=== PATIENT | female | born 1965 | race Caucasian/White ===

== ENCOUNTER 2017-01-20 07:06 | Inpatient (IN) ==
--- NOTE | 2017-01-20 08:34 | Cardiothoracic History & Phys ---
History of Present Illness Chief complaint: Substernal chest discomfort History of present illness: Ms. Gray is a 51 year old female who was admitted to [facility] 3 days ago with recent onset of tightness across her chest which awoke her from sleep. She presented to the emergency room where she was relieved with nitroglycerin and was transferred to [facility] for further evaluation. She was seen by Dr. Soto who recommended cardiac catheterization and this demonstrated critical three-vessel coronary artery disease. Patient is to be transferred to our hospital for coronary bypass surgery. Past medical history significant for history of anxiety and depression as well as diabetes mellitus and gastroesophageal reflux disease. Family history and social history shows that there is no history of premature coronary disease and the patient is a lifetime non-smoker and does not drink alcohol. She is allergic to Cipro. Review of systems is noncontributory. Physical examination: Patient is a well-developed well-nourished white female in no acute distress. Examination of head eyes ears nose and throat show the pupils are equal react to light and extraocular motions are intact and the oropharynx is benign. Examination of the neck shows that there are no masses and there are no bruits. There is no thyromegaly. Examination of chest is clear to percussion and auscultation. Examination heart shows regular sinus rhythm without murmurs. Examination of the abdomen shows that it is soft nontender and there are no masses or organomegaly appreciated. Examination extremities shows no cyanosis or edema. Neurological examination is grossly intact. Assessment: Triple-vessel coronary artery disease. Plan: Coronary bypass grafting , 01/22/2017.
[2017-01-20] MEDS ORDERED: GLUCAGON 1 MG VIAL IM PRN ×2 (08:39)
[2017-01-20] MEDS ORDERED: DEXTROSE 50% 25 GM/50 ML VIAL IV PRN (08:39)
[2017-01-20] MEDS ORDERED: DEXTROSE 50% 25 GM/50 ML SYRINGE IV PRN (08:39)
[2017-01-20] MEDS ORDERED: CEFUROXIME INJ 1,500 MG in SODIUM CHLORIDE 0.9% 100 ML IV ONE (08:39)
[2017-01-20] MEDS ORDERED: CLORAZEPATE 7.5 MG TABLET PO PRN (08:46)
[2017-01-20] MEDS ORDERED: oxyCODONE/ACETAMINOPHEN 5-325 MG TABLET PO PRN (08:50)
[2017-01-20] MEDS ORDERED: PANTOPRAZOLE 40 MG TABLET PO SCH (09:00)
[2017-01-20] MEDS: ASPIRIN CHEW 81 MG TABLET PO SCH (12:50)
[2017-01-20] MEDS: METOPROLOL TARTRATE 25 MG TABLET PO SCH ×2 (12:51→20:18)
[2017-01-20] MEDS: ENOXAPARIN 40 MG/0.4 ML SYRINGE SUBCUT SCH (14:21)
[2017-01-20] MEDS: CHLORHEXIDINE 0.12% ORAL RINSE 60 ML BOTTLE SWISH/SPIT SCH ×2 (14:21→20:19)
--- NOTE | 2017-01-20 15:44 | Sleep Medicine Consult ---
Assessment and Plan (1) Obstructive sleep apnea Status: Acute Assessment and plan: This patient should undergo reevaluation of her sleep apnea, particularly with her history of diabetes and now multivessel coronary artery disease. We will schedule home sleep testing tonight while hospitalized to see if she still has significant sleep apnea. She has dropped her weight about 23 pounds since her diagnosis and certainly may not have significant sleep apnea. She does sound to be sleeping well according to her without CPAP. Current Visit: Yes (2) Type 2 diabetes mellitus Status: Acute Assessment and plan: The prevalence rate for obstructive sleep apnea in patients with type 2 diabetes can be as high as 86%. Those patients with moderate to severe obstructive sleep apnea are at a greater risk for diabetic nephropathy and neuropathy. Compliance with CPAP therapy for these patients can lead to improvement in glycemic control and improvement in insulin sensitivity. Current Visit: Yes (3) Obesity (BMI 30-39.9) Status: Acute Assessment and plan: Patient encouraged to continue to work on weight loss thru appropriate dieting and exercise. The combination of weight loss and CPAP therapy for obstructive sleep apnea is better than either therapy alone for obstructive sleep apnea. Current Visit: Yes History of Present Illness Chief complaint: Obstructive sleep apnea History of present illness: Ms. Gray is a 51 year old female known to me from previous sleep evaluation in 2013. She was found to have moderate obstructive sleep apnea with an AHI of 15.4. She underwent CPAP titration and was placed on CPAP of 9 cm. She weighed approximately 222 pounds at the time of her evaluation. She states that she lost a significant amount of weight and quit using CPAP because she no longer needed it. Her snoring got better and she has been sleeping without CPAP now for over a year. Her is with her and states that her snoring is much better. He never hears her stop breathing during her sleep. She recently was diagnosed with coronary artery disease after presenting with chest pain. She has been admitted for bypass surgery and this is scheduled for 01/22. She currently denies any significant sleepiness. Home Medications Medication Instructions Recorded Confirmed Type Cholecalciferol [Vitamin D3] 1,000 unit PO BEDTIME 01/20/17 01/20/17 History Citalopram Hydrobromide [Celexa] 20 mg PO BEDTIME 01/20/17 01/20/17 History Clorazepate Dipotassium 7.5 mg PO BEDTIME 01/20/17 01/20/17 History [Clorazepate Dipotassium] Dapagliflozin/Metformin HCl 1 tablet PO BEDTIME 01/20/17 01/20/17 History [Xigduo Xr 5 mg-1,000 mg Tablet] glipiZIDE [Glipizide] 10 mg PO BEDTIME 01/20/17 01/20/17 History Allergies Allergy/AdvReac Type Severity Reaction Status Date / Time ciprofloxacin [From Cipro] AdvReac Severe ITCHING Verified 01/20/17 10:40 Seaweed AdvReac Severe RASH Verified 01/20/17 10:41 Review of systems: Other than for her weight loss, she denies any other significant sleep related symptoms. Exam (Pulmonay) H&P - Constitutional Vitals: Period Temp Pulse Resp BP Sys/Up Pulse Ox Last 24 Hr 98.0 F-98.2 F 85-86 18-18 100-104/63-71 94-97 Exam: She is alert and responsive in no acute distress. Pupils equal round reactive to light and accommodation. Extraocular movements intact. Oropharynx with a class III Mallampati exam. Neck is supple without adenopathy or thyromegaly. No supraclavicular adenopathy is noted. Chest with symmetrical breath sounds without focal wheeze, rhonchi, or rales. Cardiac exam reveals a regular rhythm without murmur or gallop. Abdomen soft nontender without palpable hepatosplenomegaly or mass. Extremities are without clubbing cyanosis, or edema. Neurologically, she is grossly intact. She moves all extremities with good strength. Medical,Surgical,& Family Hx - Medical History Cardio: History of: CAD, Hypertension, [place] Psychological: History of: Anxiety Disorders, Depression Endocrine: History of: Diabetes Mellitus (IDDM), Dyslipidemia Respiratory: History of: Bronchitis, Pneumonia Genitourinary: History of: Recurring Urinary Tract Infections Gastrointestinal: History of: GERD Reproductive: History of: Endometriosis - Surgical History Cardiac Surgeries: Sugical HX of: Cardiac Catheterization Abdominal Surgeries: Surgical HX of: Colonoscopy, EGD Reproductive Surgeries: Surgical HX of;: Dilation and Curettage, Hysterectomy - Family History Family History: Reports;: Family Cancer, Family Diabetes - Social History Smoking Status: Never smoker Frequency of Alcohol Use: Rarely Type of Drug Use: None Results - Labs Labs: No recent lab work available as of yet. Quality Measures - VTE Contraindication to Pharmacological VTE Prophylaxis: High Risk of Bleeding
[2017-01-20] MEDS: CITALOPRAM 20 MG TABLET PO SCH (20:18)
[2017-01-20] MEDS: PANTOPRAZOLE 40 MG TABLET PO SCH (20:18)
[2017-01-21 03:34] LABS: ABG Base Excess 4.4 MMOL/L (-2.5-2.5); ABG HCO3 28.3 MMOL/L (20-26); ABG Oxygen Saturation 98.2 % (95-100); ABG PCO2 42.6 MM HG (35-48); ABG PO2 99.6 MM HG (80-95); ABG TCO2 26.1 MMOL/L (23-27); Allen Test Positive; Pt O2 Delivery Device Room Air
[2017-01-21 05:06] LABS: Basophils % 0.7 % (0.0-0.8); Eosinophils # 0.2 10*3/uL (0.0-0.87); Hematocrit 31.1 VOL% (35.7-47.0); Hemoglobin 10.6 GM/DL (12.0-16.0); Immature Granulocytes % 0.5 %; Immature Granulocytes Absolute 0.03 #; Lymphocytes # 1.5 10*3/uL (1.4-4.0); Mean Corpuscular HGB Conc 34.1 GM/DL (32-36); Mean Corpuscular Hemoglobin 30 PG (27-34); Mean Corpuscular Volume 87.6 FL (87-102); Mean Platelet Volume 11.4 FL (9.6-12.0); Monocytes # 0.4 10*3/uL (0.11-0.8); Monocytes % 7.6 % (1.7-12.7); Neutrophils # 3.5 10*3/uL (1.4-7.4); Neutrophils % 61.2 % (38.7-73.9); Platelet Count 127 T/CUMM (130-400); Red Blood Count 3.55 MC/CUMM (3.8-5.5); Red Cell Distribution Width 13.3 % (9.3-17.3); White Blood Count 5.7 T/CUMM (4-12)
[2017-01-21 05:46] LABS: Albumin 2.7 G/DL (3.4-5.0); Bilirubin,Total 0.5 MG/DL (0.2-1.0); Calcium 8.2 MG/DL (8.5-10.1); Osmolality,Calculated 284.4 MOS/KG (273-304); Potassium 3.9 MMOL/L (3.5-5.1); Total Protein 5.9 G/DL (6.4-8.3)
--- NOTE | 2017-01-21 07:41 | EKG Report ---
Stationary ECG Study [facility] Test Date: 01/21/2017 7:42:28 AM Pat Name: YUNG RENE Department: Room: 276 Gender: F Trashman: TYREE : 1965 Requested by: Bandar Carty Order Number: [id number] Reading MD: JOVI FOSTER Intervals [place] Rate: 74 P: 30 [place]: 143 QRS: 55 QRSD: 93 T: 32 QT: 413 QTc: 440 Interpretive Statements SINUS RHYTHM NONSPECIFIC T-WAVE ABNORMALITY Electronically Signed On 01-21-17 13:12:59 CDT by JOVI FOSTER [email or web address]
--- NOTE | 2017-01-21 08:43 | XRay Report ---
XR chest 2V Indication: Coronary artery disease. Chest 2 views: No comparison. Heart size and mediastinal contour normal. No focal infiltrates are shown. Pleural spaces are clear. Impression: No acute cardiopulmonary disease. PROCEDURE INTERPRETED AT [facility] [place] DEPARTMENT OF RADIOLOGY Final Report Signed by: Rajan Velasquez M.D.
[2017-01-21] MEDS: ASPIRIN CHEW 81 MG TABLET PO SCH (09:05)
[2017-01-21] MEDS: METOPROLOL TARTRATE 25 MG TABLET PO SCH ×2 (09:05→21:11)
[2017-01-21] MEDS: CHLORHEXIDINE 4% SOLN 118 ML BOTTLE TOP SCH ×2 (09:05→20:15)
[2017-01-21] MEDS: CHLORHEXIDINE 0.12% ORAL RINSE 60 ML BOTTLE SWISH/SPIT SCH ×2 (09:05→21:12)
[2017-01-21] MEDS: ENOXAPARIN 40 MG/0.4 ML SYRINGE SUBCUT SCH (09:05)
[2017-01-21] MEDS: glipiZIDE 10 MG TABLET PO SCH (09:05)
[2017-01-21] MEDS: SODIUM CHLORIDE 0.9% 1,000 ML IV SCH (09:51)
[2017-01-21] MEDS: INSULIN REGULAR 100 UNIT/ML SUBCUT SCH ×3 (12:29→21:12)
--- NOTE | 2017-01-21 17:52 | Sleep Medicine Progress Note ---
Assessment and Plan (1) Obstructive sleep apnea Status: Acute Assessment and plan: This patient does continue to have significant obstructive sleep apnea with O2 desaturation. We will go ahead and initiate auto titration CPAP from 5-20 cm and follow-up her results with daily downloaded information from her CPAP machine. Current Visit: Yes (2) Type 2 diabetes mellitus Status: Acute Current Visit: Yes (3) Obesity (BMI 30-39.9) Status: Acute Current Visit: Yes Sleep Medicine Subjective Interval history: Patient did undergo home sleep testing last night and was found to have moderate sleep apnea. She had a respiratory event index of 23.9 with O2 desaturation to 72% by pulse oximetry.. She spent over 80 minutes of her sleep with O2 sats of less than 90%. Based on these findings and her underlying coronary artery disease, we need to go ahead and reinstitute CPAP therapy for obstructive sleep apnea. I have recommended an auto titration mode of 5-20 cm. She would like to use a full facemask. I reviewed all of her findings with her to her understanding. This evaluation does not overestimate severity of sleep apnea and if anything, would underestimate sleep apnea severity. She was disappointed as expected. She had lost a significant amount of weight to get off of CPAP therapy. She understands the importance of controlling her sleep apnea with her heart disease. Exam (Progress Note) - Constitutional Vitals: Period Temp Pulse Resp BP Sys/Up Pulse Ox Last 24 Hr 96.3 F-98.1 F 74-87 18-75 111-145/61-77 94-100 Exam: She is alert and responsive in no acute distress. She answered all questions appropriately. Results - Labs CBC & BMP: 01/21/17 04:13 01/21/17 04:13 Lab Results: I have reviewed the past 24 hour labs
[2017-01-21] MEDS: CITALOPRAM 20 MG TABLET PO SCH (21:11)
[2017-01-21] MEDS: PANTOPRAZOLE 40 MG TABLET PO SCH (21:11)
[2017-01-22] MEDS ORDERED: PAPAVERINE 60 MG/2 ML VIAL ONE (04:31)
[2017-01-22] MEDS ORDERED: VANCOMYCIN 1,000 MG VIAL ONE (04:31)
[2017-01-22] MEDS: CHLORHEXIDINE 4% SOLN 118 ML BOTTLE TOP SCH (04:42)
[2017-01-22] MEDS ORDERED: SODIUM CHLORIDE 0.9% 1,000 ML IV SCH (05:00)
[2017-01-22] MEDS ORDERED: SUFentanil 250 MCG/5 ML AMP ONE (05:43)
[2017-01-22] MEDS ORDERED: MIDAZOLAM 10 MG/2 ML VIAL ONE (05:43)
[2017-01-22] MEDS ORDERED: DIAZEPAM 5 MG TABLET PO ONE (06:00)
[2017-01-22] MEDS: METOPROLOL TARTRATE 25 MG TABLET PO SCH (06:02)
[2017-01-22] MEDS ORDERED: CEFUROXIME INJ 1,500 MG in SODIUM CHLORIDE 0.9% 100 ML IV ONE (06:30)
[2017-01-22] MEDS ORDERED: PHENYLEPHRINE 20 MG/250 ML PREMIX IV ONE (06:44)
[2017-01-22] MEDS ORDERED: VECURONIUM 10 MG VIAL IV ONE ×2 (06:44→09:28)
[2017-01-22] MEDS ORDERED: ETOMIDATE 20 MG/10 ML VIAL IV ONE ×2 (06:44→09:26)
[2017-01-22] MEDS ORDERED: LIDOCAINE 1% 5 ML VIAL ONE (06:44)
[2017-01-22] MEDS ORDERED: CALCIUM CHLORIDE 1,000 MG/10 ML SYRINGE IV ONE ×3 (06:44→09:24)
[2017-01-22] MEDS ORDERED: NITROGLYCERIN 50 MG/250 ML BOTTLE IV ONE (06:44)
[2017-01-22] MEDS ORDERED: AMINOCAPROIC ACID 5,000 MG/20 ML VIAL IV ONE ×2 (06:44→09:24)
[2017-01-22 07:35] LABS: ABG Base Excess 1.5 MMOL/L (-2.5-2.5); ABG HCO3 25.8 MMOL/L (20-26); ABG Oxygen Saturation 99.9 % (95-100); ABG PCO2 46.3 MM HG (35-48); ABG PH 7.376 (7.35-7.45); ABG TCO2 24.7 MMOL/L (23-27); Glucose Heart Surgery 340 MG/DL (74-106); Hematocrit Heart Surgery 30.7 PERCENT (37-47); Hemoglobin Heart Surgery 9.9 G/DL (12.0-16.0); Ionized Calcium Arterial 1.16 MMOL/L (1.21-1.46); PCO2 Patient Temp Arterial 46.3 MMHG; PH Patient Temp Arterial 7.376; Patient Temperature 37 CELCIUS; Sodium Heart/CVR 139 MMOL/L (135-145)
[2017-01-22 07:42] LABS: Apearance,Urine CLEAR (Clear); Bacteria,Urine Occasional /HPF (Few); Bilirubin,Urine Negative (Negative); Blood, Urine Negative (Negative); Glucose,Urine (UA) >=500 mg/dL (Negative); Ketones,Urine Negative (Negative); Mucus,Urine Occasional /LPF (Occasional); Nitrite,Urine Negative (Negative); Protein,Urine Negative; RBC,Urine 3 /HPF (0-4); Squamous Epithelial Cell,Urine Occasional /HPF (0-10); Urine Color Yellow (Yellow); WBC,Urine 20 /HPF (0-6)
[2017-01-22] MEDS ORDERED: POTASSIUM CHLORIDE RIDER 100 ML IV ONE (08:53)
[2017-01-22] MEDS ORDERED: PHENYLEPHRINE DRIP 40 MG/250 ML PREMIX IV ONE (08:53)
[2017-01-22] MEDS ORDERED: NITROPRUSSIDE 50 MG/2 ML VIAL ONE (08:53)
[2017-01-22] MEDS ORDERED: HEPARIN/NACL 0.9% 2 UNITS/ML 500 ML IV ONE (09:23)
[2017-01-22] MEDS ORDERED: PHENYLEPHRINE DRIP 20 MG/250 ML PREMIX IV ONE ×2 (09:24→10:41)
[2017-01-22] MEDS ORDERED: NITROGLYCERIN DRIP 50 MG/250 ML BOTTLE IV ONE (09:24)
[2017-01-22] MEDS ORDERED: SODIUM CHLORIDE 0.9% 1,000 ML IV ONE (09:26)
[2017-01-22] MEDS ORDERED: LACTATED RINGERS 1,000 ML IV ONE ×2 (09:26→11:22)
[2017-01-22] MEDS ORDERED: SODIUM CHLORIDE 0.9% 250 ML IV ONE (09:26)
[2017-01-22 09:31] LABS: Hematocrit Heart Surgery 26.4 PERCENT (37-47); Hemoglobin Heart Surgery 8.5 G/DL (12.0-16.0); PCO2 Patient Temp Venous 40.6 MM HG; PH Patient Temp Venous 7.424; Potassium Heart/CVR 4.3 MMOL/L (3.5-5.1); VBG Base Excess 2.2 MEQ/L (0-4); VBG HCO3 26.1 MEQ/L (24-28); VBG Oxygen Saturation 75.9 %; VBG PCO2 44.8 MMHG (41-51); VBG PH 7.395; VBG PO2 40.2 MMHG (17-40)
[2017-01-22 10:04] LABS: Hematocrit Heart Surgery 26.9 PERCENT (37-47); Hemoglobin Heart Surgery 8.7 G/DL (12.0-16.0); PH Patient Temp Venous 7.385; PO2 Patient Temp Venous 32.8 MM HG; Potassium Heart/CVR 4.8 MMOL/L (3.5-5.1); VBG Base Excess 1.7 MEQ/L (0-4); VBG HCO3 25.5 MEQ/L (24-28); VBG Oxygen Saturation 66.5 %; VBG PCO2 47.3 MMHG (41-51); VBG PH 7.371; VBG PO2 35.2 MMHG (17-40)
[2017-01-22] MEDS ORDERED: SODIUM BICARBONATE 50 MEQ/50 ML SYRINGE IV ONE ×2 (10:19→10:41)
[2017-01-22] MEDS ORDERED: EPINEPHrine 1 MG/10 ML SYRINGE ONE (10:19)
[2017-01-22] MEDS ORDERED: LIDOCAINE 100 MG/5 ML SYRINGE ONE (10:20)
[2017-01-22] MEDS ORDERED: ALBUMIN 5% 12.5 GM/250 ML VIAL IV ONE (10:20)
[2017-01-22 10:41] LABS: ABG Base Excess -0.1 MMOL/L (-2.5-2.5); ABG HCO3 24.4 MMOL/L (20-26); ABG Oxygen Saturation 99.8 % (95-100); ABG PCO2 46.6 MM HG (35-48); ABG TCO2 23.7 MMOL/L (23-27); Glucose Heart Surgery 349 MG/DL (74-106); Hematocrit Heart Surgery 29.5 PERCENT (37-47); Hemoglobin Heart Surgery 9.5 G/DL (12.0-16.0); Ionized Calcium Arterial 1.21 MMOL/L (1.21-1.46); PCO2 Patient Temp Arterial 46.6 MMHG; Patient Temperature 37 CELCIUS; Sodium Heart/CVR 138 MMOL/L (135-145)
[2017-01-22] MEDS ORDERED: ALBUMIN 25% 25 GM/100 ML VIAL IV ONE (10:41)
[2017-01-22] MEDS ORDERED: DEXTROSE 5% KCL 20 MEQ 20 MEQ/1,000 ML BAG IV ONE (10:41)
[2017-01-22] MEDS ORDERED: PROTAMINE SULFATE 250 MG/25 ML VIAL IV ONE (10:42)
[2017-01-22] MEDS ORDERED: methylPREDNISolone SOD SUC 1,000 MG/8 ML VIAL ONE (10:42)
[2017-01-22] MEDS ORDERED: FUROSEMIDE 20 MG/2 ML VIAL ONE (10:42)
[2017-01-22] MEDS ORDERED: POTASSIUM CHLORIDE 20 MEQ/10 ML VIAL ONE (10:42)
[2017-01-22] MEDS ORDERED: MAGNESIUM SULFATE 1 GM/2 ML VIAL ONE (10:42)
[2017-01-22] MEDS ORDERED: HEPARIN 10,000 UNIT/10 ML VIAL ONE (10:42)
[2017-01-22] MEDS ORDERED: MANNITOL 12.5 GM/50 ML VIAL IV ONE (10:42)
--- NOTE | 2017-01-22 10:56 | Physician Query Form ---
CLICK EDIT DOCUMENT TO SELECT QUERY ANSWER --> OK --> SIGN Cheryl Purcell RN, CCDS Certified Clinical Real Estate Accountant W) [phone] (f) [phone] [email or web address] PROVIDERS: Make your selection(s) from the choices in EACH section by typing an "x" and enter comments in the comment section. Please use your independent medical judgment in providing your response. This request does not imply that any particular answer is desired or expected. CLINICAL INDICATORS: (Providers should not edit this section) The medical record indicates that the patient was admitted for CAD, NANCY, obesity , " found to have moderate sleep apnea", "spent over 80 minutes of her sleep with O2 sats of less than 90%" and will " reinstitute CPAP therapy for obstructive sleep apnea". " She had lost a significant amount of weight to get off of CPAP therapy" Based on the above, could you clarify the appropriate diagnosis, if significant , that supports the above abnormalities and additional evaluation, monitoring, and/or treatment rendered: ( x) patient is not being monitored or treated for Obesity hypoventilation syndrome ( ) patent is being monitored or treated for Obesity hypoventilation syndrome ( ) Other, please specify: ( ) Clinically unable to determine COMMENTS: PLEASE ALSO DOCUMENT RESPONSE IN PROGRESS NOTES AND/OR DISCHARGE SUMMARY Use of terms such as suspected, likely, or probable (associated with a specific diagnosis that is being evaluated, monitored, or treated as if it exists) are acceptable and can be restated in the discharge summary if not ruled out. MTDD
[2017-01-22] MEDS ORDERED: PROTAMINE SULFATE 50 MG/5 ML VIAL IV ONE ×2 (11:20→11:24)
--- NOTE | 2017-01-22 11:21 | Operative Note ---
Date of procedure: 01/22/17 Pre-op diagnosis: Chest pain Post-op diagnosis: same (Chest pain) Procedure: Procedure: Coronary bypass grafting 2 with a left internal mammary graft to the intermediate coronary artery and a right internal mammary graft to the anterior descending coronary artery. The right internal mammary graft was used as a free graft to the anterior descending coronary artery. Findings: Patient is a 51-year-old lady presented with recent onset of substernal chest pain and cardiac catheterization showed critical three-vessel coronary disease. Right coronary artery was totally occluded and at the time of surgery there is no suitable distal site for bypass grafting. Also the distal circumflex system was too small to graft and therefore grafts were placed to a large intermediate and a large anterior descending coronary artery using bilateral internal mammary grafts as noted above. Both distal vessels were of large size and free of disease at the site of anastomosis. Patient tolerated procedure well and was returned to recovery in satisfactory condition. Procedure: Patient brought the operating room placed in the operating table in supine position. After satisfactory induction of general anesthesia the chest abdomen and legs were prepped and draped in sterile fashion. Sternotomy incision was made and the sternum was divided and the heart suspended in a pericardial cradle. Both internal mammary arteries to were dissected free and prepared as an arterial graft. Patient was prepared for cardiopulmonary bypass with systemic heparinization and cannulation of the ascending aorta and right atrium. Cardiopulmonary bypass was begun and the aorta was crossclamped and the heart arrested with cardioplegia solution injected into the aortic root. Distal anastomoses were constructed as noted above and the left internal mammary graft was used in situ the graft ramus coronary artery and the right internal mammary graft was used as a free graft to bypass anterior descending coronary artery. The aorta was then unclamped reestablishing cardiac action and a proximal anastomosis constructed between the inflow end of the free right internal mammary graft in the ascending aorta. Following this the patient was weaned from cardiopulmonary bypass without difficulty and heparin effect reversed with protamine and decannulation carried out with a defects in the ascending aorta and right atrium closed with 3-0 Prolene. Operative field was inspected for hemostasis and this was considered adequate the incision was closed with interrupted stainless steel wire and the sternum 0 Monopril in the presternal fascia and 3-0 Monocryl in subcuticular position. 2 chest tubes were left one in the anterior mediastinum and one in the right hemithorax and these were brought out through separate stab incisions. Sterile dressings were applied the patient was returned to recovery in satisfactory condition. Anesthesia: GETA Surgeon / Physician: Bandar March Condition: stable Disposition: ICU Results - Labs CBC & BMP: 01/22/17 10:34 01/21/17 04:13 Discharge Plan - Discharge Medications No Action Cholecalciferol [Vitamin D3] 1,000 unit PO BEDTIME Dapagliflozin/Metformin HCl [Xigduo Xr 5 mg-1,000 mg Tablet] 1 tablet PO BEDTIME Clorazepate Dipotassium [Clorazepate Dipotassium] 7.5 mg PO BEDTIME Citalopram Hydrobromide [Celexa] 20 mg PO BEDTIME glipiZIDE [Glipizide] 10 mg PO BEDTIME - Follow Up or Referral - Forms/Instructions
[2017-01-22] MEDS ORDERED: MORPHINE 10 MG/1 ML VIAL IV PRN (11:22)
[2017-01-22] MEDS ORDERED: ACETAMINOPHEN 650 MG SUPP RECTAL PRN (11:22)
[2017-01-22] MEDS ORDERED: MIDAZOLAM 10 MG/2 ML VIAL IV PRN (11:22)
[2017-01-22] MEDS ORDERED: NITROPRUSSIDE 100 MG in DEXTROSE 5% 250 ML IV PRN (11:22)
[2017-01-22] MEDS ORDERED: MIDAZOLAM 2 MG/2 ML VIAL IV PRN (11:22)
[2017-01-22] MEDS ORDERED: MAGNESIUM SULF RIDER 4 GM in PREMIX 1 EACH IV PRN (11:22)
[2017-01-22] MEDS ORDERED: INSULIN REGULAR 100 UNIT/ML IV PRN (11:22)
[2017-01-22] MEDS ORDERED: DEXTROSE 50% 25 GM/50 ML SYRINGE IV PRN ×2 (11:22)
[2017-01-22] MEDS ORDERED: VECURONIUM 10 MG VIAL IV PRN ×2 (11:22)
[2017-01-22] MEDS ORDERED: LACTATED RINGERS 250 ML IV PRN (11:22)
[2017-01-22] MEDS ORDERED: INSULIN REGULAR 100 UNIT/ML IV ONE (11:22)
[2017-01-22] MEDS ORDERED: ONDANSETRON 4 MG/2 ML VIAL IV PRN (11:22)
[2017-01-22] MEDS ORDERED: CALCIUM CHLORIDE 1,000 MG/10 ML SYRINGE IV PRN (11:22)
[2017-01-22] MEDS ORDERED: MAGNESIUM SULF RIDER 2 GM in PREMIX 1 EACH IV PRN (11:22)
[2017-01-22] MEDS ORDERED: INSULIN REGULAR DRIP 100 ML IV SCH (11:30)
[2017-01-22] MEDS: SODIUM CHLORIDE 0.45% 1,000 ML IV SCH ×2 (11:30→12:00)
[2017-01-22] MEDS ORDERED: SEVOFLURANE 1 UNIT/15 MINUTE INH ONE (11:52)
[2017-01-22 12:33] LABS: Basophils # 0.1 10*3/uL (0.0-0.2); Basophils % 0.5 % (0.0-0.8); Eosinophils # 0.1 10*3/uL (0.0-0.87); Eosinophils % 0.9 % (0.00-10.9); Hematocrit 28.5 VOL% (35.7-47.0); Hemoglobin 9.9 GM/DL (12.0-16.0); Immature Granulocytes % 1.6 %; Immature Granulocytes Absolute 0.15 #; Lymphocytes # 0.7 10*3/uL (1.4-4.0); Lymphocytes % 7.8 % (21.3-54.2); Mean Corpuscular HGB Conc 34.7 GM/DL (32-36); Mean Corpuscular Hemoglobin 30 PG (27-34); Mean Corpuscular Volume 87.2 FL (87-102); Mean Platelet Volume 11.1 FL (9.6-12.0); Monocytes # 0.6 10*3/uL (0.11-0.8); Neutrophils # 7.6 10*3/uL (1.4-7.4); Neutrophils % 83.2 % (38.7-73.9); Platelet Count 120 T/CUMM (130-400); Red Blood Count 3.27 MC/CUMM (3.8-5.5); Red Cell Distribution Width 13.8 % (9.3-17.3); White Blood Count 9.2 T/CUMM (4-12)
[2017-01-22 12:43] LABS: INR 1.1; PT Patient Result 11.6 SECS; Partial Thromboplastin Time 26.4 SECS (0-40)
[2017-01-22 12:51] LABS: ABG HCO3 27.1 MMOL/L (20-26); ABG Oxygen Saturation 99.1 % (95-100); ABG PH 7.433 (7.35-7.45); ABG TCO2 24.9 MMOL/L (23-27); Glucose Heart Surgery 363 MG/DL (74-106); Hematocrit Heart Surgery 31.2 PERCENT (37-47); Hemoglobin Heart Surgery 10.1 G/DL (12.0-16.0); Potassium Heart/CVR 3.8 MMOL/L (3.5-5.1)
[2017-01-22 12:51] LABS: Albumin 2.9 G/DL (3.4-5.0); Bilirubin,Total 0.6 MG/DL (0.2-1.0); Calcium 8.4 MG/DL (8.5-10.1); Magnesium 1.8 MG/DL (1.8-2.4); Osmolality,Calculated 291.3 MOS/KG (273-304); Potassium 3.9 MMOL/L (3.5-5.1); Total Protein 5.5 G/DL (6.4-8.3)
[2017-01-22 12:54] LABS: CKMB % 5.3 %
[2017-01-22 12:58] LABS: Troponin I Only 1.24 NG/ML (0.00-0.045)
--- NOTE | 2017-01-22 13:00 | XRay Report ---
XR chest 1V portable Indication: Intubated. Chest one view: Since yesterday, patient has undergone median sternotomy. Endotracheal tube terminates 3 cm cephalad the nicolette. NG tube extends to left upper quadrant. Vermilion-Harmeet catheter is present, tip overlying main right pulmonary artery. Right IJ central line noted. Right basilar chest tube and a right mediastinal drain are present. No pneumothorax shown. Heart size is normal. Lungs are hypoinflated with atelectasis. Impression: Lines and tubes as described. Mild pulmonary hypoinflation. PROCEDURE INTERPRETED AT [facility] DEPARTMENT OF RADIOLOGY Final Report Signed by: Rajan Velasquez M.D.
[2017-01-22] MEDS: KETOROLAC 30 MG/1 ML VIAL IV SCH ×3 (13:13→23:05)
[2017-01-22] MEDS: ALBUMIN 5% 12.5 GM in PREMIX 1 EACH IV PRN ×3 (13:20→23:28)
[2017-01-22] MEDS: POTASSIUM CHLORIDE RIDER 20 MEQ in PREMIX 1 EACH IV PRN ×2 (13:52→17:47)
[2017-01-22] MEDS: POTASSIUM CHLORIDE RIDER 10 MEQ in PREMIX 1 EACH IV PRN ×2 (14:19→18:05)
[2017-01-22] MEDS ORDERED: LACTATED RINGERS 1,000 ML IV PRN (14:30)
[2017-01-22 15:19] LABS: ABG Base Excess 0.9 MMOL/L (-2.5-2.5); ABG HCO3 25.2 MMOL/L (20-26); ABG Oxygen Saturation 99.8 % (95-100); ABG PCO2 37.7 MM HG (35-48); ABG PH 7.431 (7.35-7.45); ABG TCO2 23.1 MMOL/L (23-27); Glucose Heart Surgery 296 MG/DL (74-106); Hematocrit Heart Surgery 27.5 PERCENT (37-47); Hemoglobin Heart Surgery 8.8 G/DL (12.0-16.0); Potassium Heart/CVR 3.8 MMOL/L (3.5-5.1)
--- NOTE | 2017-01-22 15:40 | Sleep Medicine Progress Note ---
Assessment and Plan (1) Obstructive sleep apnea Status: Acute Assessment and plan: We will re-continue auto titration CPAP once extubated. Current Visit: Yes (2) Type 2 diabetes mellitus Status: Acute Current Visit: Yes (3) Obesity (BMI 30-39.9) Status: Acute Current Visit: Yes Sleep Medicine Subjective Interval history: Patient did very well with surgery and last night, slept well with auto titration CPAP. She spent over 4-1/2 hours on auto titration CPAP and had a good pressure result at 10 cm. She had good control of her significant sleep apnea with an overall AHI of 5.2. I have discussed her case with nurses at the bedside in the CVR. If she is extubated in the evening, I would have auto titration CPAP available for her. Her CPAP machine was in her bedroom upstairs and could be gotten to be at the bedside down in the CVR if needed. Exam (Progress Note) - Constitutional Vitals: Period Temp Pulse Resp BP Sys/Up Pulse Ox Last 24 Hr 96 F-98.8 F 73-89 10-20 83-134/48-75 94-100 Exam: Patient on mechanical ventilation. Sedated. Will arouse. Results - Labs CBC & BMP: 01/22/17 12:11 01/22/17 12:11 Lab Results: I have reviewed the past 24 hour labs
[2017-01-22] MEDS: PHENYLEPHRINE DRIP 40 MG/250 ML PREMIX IV PRN (15:57)
[2017-01-22] MEDS ORDERED: FUROSEMIDE 40 MG/4 ML VIAL IV ONE ×2 (17:20→23:28)
[2017-01-22 17:28] LABS: ABG Base Excess 1.1 MMOL/L (-2.5-2.5); ABG HCO3 25.4 MMOL/L (20-26); ABG Oxygen Saturation 98.7 % (95-100); ABG PCO2 45.7 MM HG (35-48); ABG PH 7.374 (7.35-7.45); ABG TCO2 24.4 MMOL/L (23-27); Glucose Heart Surgery 227 MG/DL (74-106); Hematocrit Heart Surgery 30.3 PERCENT (37-47); Hemoglobin Heart Surgery 9.8 G/DL (12.0-16.0); Potassium Heart/CVR 3.5 MMOL/L (3.5-5.1)
[2017-01-22 18:57] LABS: ABG Base Excess 1.2 MMOL/L (-2.5-2.5); ABG HCO3 25.5 MMOL/L (20-26); ABG Oxygen Saturation 97.9 % (95-100); ABG PCO2 50.6 MM HG (35-48); ABG PH 7.345 (7.35-7.45); ABG PO2 94.1 MM HG (80-95); ABG TCO2 25.2 MMOL/L (23-27); Glucose Heart Surgery 179 MG/DL (74-106); Potassium Heart/CVR 4.2 MMOL/L (3.5-5.1)
[2017-01-22] MEDS: CEFUROXIME INJ 1,500 MG in SODIUM CHLORIDE 0.9% 100 ML IV SCH (19:36)
[2017-01-22 20:54] LABS: CKMB % 3.3 %
[2017-01-22 20:55] LABS: Troponin I Only 1.29 NG/ML (0.00-0.045)
[2017-01-22] MEDS: MORPHINE 2 MG/1 ML SYRINGE IV PRN (21:08)
[2017-01-22] MEDS: CHLORHEXIDINE 0.12% ORAL RINSE 60 ML BOTTLE SWISH/SPIT SCH (23:05)
[2017-01-22] MEDS ORDERED: FUROSEMIDE 40 MG/4 ML VIAL ONE (23:25)
[2017-01-23 00:11] LABS: ABG Base Excess 0.9 MMOL/L (-2.5-2.5); ABG HCO3 25.3 MMOL/L (20-26); ABG Oxygen Saturation 98.2 % (95-100); ABG PCO2 47.7 MM HG (35-48); ABG PH 7.358 (7.35-7.45); ABG TCO2 24.6 MMOL/L (23-27); Glucose Heart Surgery 111 MG/DL (74-106); Hemoglobin Heart Surgery 9.7 G/DL (12.0-16.0); Potassium Heart/CVR 3.8 MMOL/L (3.5-5.1)
[2017-01-23] MEDS: POTASSIUM CHLORIDE RIDER 20 MEQ in PREMIX 1 EACH IV PRN ×2 (00:33→05:52)
[2017-01-23] MEDS: POTASSIUM CHLORIDE RIDER 10 MEQ in PREMIX 1 EACH IV PRN (01:10)
[2017-01-23 04:20] LABS: ABG Base Excess 0.3 MMOL/L (-2.5-2.5); ABG HCO3 24.7 MMOL/L (20-26); ABG Oxygen Saturation 96.7 % (95-100); ABG PCO2 51.2 MM HG (35-48); ABG PH 7.328 (7.35-7.45); ABG PO2 88.1 MM HG (80-95); ABG TCO2 24.6 MMOL/L (23-27); Glucose Heart Surgery 164 MG/DL (74-106); Hematocrit Heart Surgery 30.8 PERCENT (37-47); Potassium Heart/CVR 4.1 MMOL/L (3.5-5.1)
[2017-01-23 04:25] LABS: Basophils # 0.1 10*3/uL (0.0-0.2); Basophils % 0.3 % (0.0-0.8); Hematocrit 29.4 VOL% (35.7-47.0); Hemoglobin 9.8 GM/DL (12.0-16.0); Immature Granulocytes % 1.1 %; Immature Granulocytes Absolute 0.21 #; Lymphocytes # 0.8 10*3/uL (1.4-4.0); Lymphocytes % 4.2 % (21.3-54.2); Mean Corpuscular HGB Conc 33.3 GM/DL (32-36); Mean Corpuscular Hemoglobin 30 PG (27-34); Mean Corpuscular Volume 89.6 FL (87-102); Mean Platelet Volume 11.2 FL (9.6-12.0); Monocytes % 5.5 % (1.7-12.7); Neutrophils # 16.3 10*3/uL (1.4-7.4); Neutrophils % 88.9 % (38.7-73.9); Platelet Count 174 T/CUMM (130-400); Red Blood Count 3.28 MC/CUMM (3.8-5.5); Red Cell Distribution Width 14.3 % (9.3-17.3); White Blood Count 18.3 T/CUMM (4-12)
[2017-01-23 05:27] LABS: Band Neutrophils 5 % (0-10); Lymphocytes 4 % (20-55); Myelocytes 4 %; Segmented Neutrophils 86 % (50-85)
[2017-01-23 05:28] LABS: Platelet Estimate Normal; Total Cells Counted 100
[2017-01-23 05:32] LABS: Albumin 3.4 G/DL (3.4-5.0); Bilirubin,Direct 0.1 MG/DL (0.0-0.20); Bilirubin,Total 0.7 MG/DL (0.2-1.0); Calcium 8.1 MG/DL (8.5-10.1); Magnesium 1.6 MG/DL (1.8-2.4); Osmolality,Calculated 284.3 MOS/KG (273-304); Potassium 4.2 MMOL/L (3.5-5.1)
[2017-01-23] MEDS: KETOROLAC 30 MG/1 ML VIAL IV SCH ×3 (05:51→16:34)
[2017-01-23] MEDS: ALBUMIN 5% 12.5 GM in PREMIX 1 EACH IV PRN (06:20)
--- NOTE | 2017-01-23 06:21 | Cardiothoracic Progress Note ---
Cardiothoracic Subjective Interval history: Patient is awake alert and extubated. Vital signs have been stable through the night and she is breathing comfortably this morning. Cardiac output has ranged between 4.5 and 5 L/min. Cardiac enzymes are within normal limits for postoperative day #1. Blood gases have been satisfactory postextubation and urine output has been adequate with a normal creatinine this morning. Chest tube drainage is minimal she does have a small air leak so I am going to leave her chest tubes for now. We will check her later this morning but she may be ready for transfer later this morning. Exam (Progress Note) - Constitutional Vitals: Period Temp Pulse Resp BP Sys/Up Pulse Ox Last 24 Hr 97.4 F-98.9 F 71-89 10-20 83-141/7-76 95-100 Result/EKG - Labs CBC & BMP: 01/23/17 04:05 01/23/17 04:05 Labs: Laboratory Results - last 24 hr 01/21/17 01/22/17 01/22/17 04:14 07:31 07:31 WBC RBC Hgb Hct MCV MCH MCHC RDW Plt Count 108 L MPV Neut % (Auto) Lymph % (Auto) [place] % (Auto) Eos % (Auto) Baso % (Auto) Neut # (Auto) Lymph # (Auto) [place] # (Auto) Eos # (Auto) Baso # (Auto) Total Counted Immature Gran % Nucleated RBC % Immature Gran # Segmented Neutrophils Band Neutrophils Lymphocytes Monocytes Myelocytes Nucleated RBCs # Platelet Estimate Immature Plt Fraction INR PT Patient/Control Mix Circ Anticoag PTT Patient Temperature 37 ABG pH 7.376 ABG pH at Pt Temp 7.376 ABG pCO2 46.3 ABG pCO2 at Pt Temp 46.3 ABG pO2 236.0 H ABG pO2 at Pt Temp 236.0 ABG HCO3 25.8 ABG Total CO2 24.7 ABG O2 Saturation 99.9 ABG Base Excess 1.5 ABG Sodium 139 VBG pH VBG pCO2 VBG pO2 VBG HCO3 VBG Total CO2 VBG O2 Saturation VBG Base Excess Hemoglobin 9.9 L Hematocrit 30.7 L Potassium 4.0 Glucose 340 H Ionized Calcium 1.16 L FiO2 Sodium Chloride Carbon Dioxide Anion Gap BUN Creatinine GFR Calculation BUN/Creatinine Ratio POC Glucose Calculated Osmolality Calcium Venous Ioniz Calcium Magnesium Total Bilirubin Direct Bilirubin AST ALT Alkaline Phosphatase Total Creatine Kinase CK-MB (CK-2) CK and CKMB Interp Troponin I Total Protein Albumin Globulin Albumin/Globulin Ratio Urine Color Urine Appearance Urine pH Ur Specific [place] Urine Protein Urine Glucose (UA) Urine Ketones Urine Blood Urine Nitrate Urine Bilirubin Urine Urobilinogen Urine Leukocytes Urine RBC Urine WBC Ur Squamous Epith Cells Urine Bacteria Urine Mucus Urine Yeast (Budding) Ur Culture Indicated? Blood Type B POSITIVE Antibody Screen Negative Crossmatch See Detail 01/22/17 01/22/17 01/22/17 07:33 09:29 10:00 WBC RBC Hgb Hct MCV MCH MCHC RDW Plt Count MPV Neut % (Auto) Lymph % (Auto) [place] % (Auto) Eos % (Auto) Baso % (Auto) Neut # (Auto) Lymph # (Auto) [place] # (Auto) Eos # (Auto) Baso # (Auto) Total Counted Immature Gran % Nucleated RBC % Immature Gran # Segmented Neutrophils Band Neutrophils Lymphocytes Monocytes Myelocytes Nucleated RBCs # Platelet Estimate Immature Plt Fraction INR PT Patient/Control Mix Circ Anticoag PTT Patient Temperature 35 36 ABG pH ABG pH at Pt Temp 7.424 7.385 ABG pCO2 ABG pCO2 at Pt Temp 40.6 45.0 ABG pO2 ABG pO2 at Pt Temp 35.0 32.8 ABG HCO3 ABG Total CO2 ABG O2 Saturation ABG Base Excess ABG Sodium 135 136 VBG pH 7.395 7.371 VBG pCO2 44.8 47.3 VBG pO2 40.2 H 35.2 VBG HCO3 26.1 25.5 VBG Total CO2 25.5 25.5 VBG O2 Saturation 75.9 66.5 VBG Base Excess 2.2 1.7 Hemoglobin 8.5 L 8.7 L Hematocrit 26.4 L 26.9 L Potassium 4.3 4.8 Glucose 462 H 417 H Ionized Calcium FiO2 80.00 80.00 Sodium Chloride Carbon Dioxide Anion Gap BUN Creatinine GFR Calculation BUN/Creatinine Ratio POC Glucose Calculated Osmolality Calcium Venous Ioniz Calcium 0.98 L 1.02 L Magnesium Total Bilirubin Direct Bilirubin AST ALT Alkaline Phosphatase Total Creatine Kinase CK-MB (CK-2) CK and CKMB Interp Troponin I Total Protein Albumin Globulin Albumin/Globulin Ratio Urine Color Yellow Urine Appearance Clear Urine pH 5.0 Ur Specific [place] 1.020 Urine Protein Negative Urine Glucose (UA) >=500 Urine Ketones Negative Urine Blood Negative Urine Nitrate Negative Urine Bilirubin Negative Urine Urobilinogen 2.0 H Urine Leukocytes Small H Urine RBC 3 Urine WBC 20 Ur Squamous Epith Cells Occasional Urine Bacteria Occasional Urine Mucus Occasional Urine Yeast (Budding) Occasional Ur Culture Indicated? Results to follow Blood Type Antibody Screen Crossmatch 01/22/17 01/22/17 01/22/17 10:34 10:34 11:22 WBC RBC Hgb Hct MCV MCH MCHC RDW Plt Count 191 D MPV Neut % (Auto) Lymph % (Auto) [place] % (Auto) Eos % (Auto) Baso % (Auto) Neut # (Auto) Lymph # (Auto) [place] # (Auto) Eos # (Auto) Baso # (Auto) Total Counted Immature Gran % Nucleated RBC % Immature Gran # Segmented Neutrophils Band Neutrophils Lymphocytes Monocytes Myelocytes Nucleated RBCs # Platelet Estimate Immature Plt Fraction INR PT Patient/Control Mix Circ Anticoag PTT Patient Temperature 37 ABG pH 7.350 7.433 ABG pH at Pt Temp 7.350 ABG pCO2 46.6 41.0 ABG pCO2 at Pt Temp 46.6 ABG pO2 254.0 H 154.0 H ABG pO2 at Pt Temp 254.0 ABG HCO3 24.4 27.1 H ABG Total CO2 23.7 24.9 ABG O2 Saturation 99.8 99.1 ABG Base Excess -0.1 3.0 H ABG Sodium 138 VBG pH VBG pCO2 VBG pO2 VBG HCO3 VBG Total CO2 VBG O2 Saturation VBG Base Excess Hemoglobin 9.5 L 10.1 L Hematocrit 29.5 L 31.2 L Potassium 4.0 3.8 Glucose 349 H 363 H Ionized Calcium 1.21 FiO2 Sodium Chloride Carbon Dioxide Anion Gap BUN Creatinine GFR Calculation BUN/Creatinine Ratio POC Glucose Calculated Osmolality Calcium Venous Ioniz Calcium Magnesium Total Bilirubin Direct Bilirubin AST ALT Alkaline Phosphatase Total Creatine Kinase CK-MB (CK-2) CK and CKMB Interp Troponin I Total Protein Albumin Globulin Albumin/Globulin Ratio Urine Color Urine Appearance Urine pH Ur Specific [place] Urine Protein Urine Glucose (UA) Urine Ketones Urine Blood Urine Nitrate Urine Bilirubin Urine Urobilinogen Urine Leukocytes Urine RBC Urine WBC Ur Squamous Epith Cells Urine Bacteria Urine Mucus Urine Yeast (Budding) Ur Culture Indicated? Blood Type Antibody Screen Crossmatch 01/22/17 01/22/17 01/22/17 12:11 12:11 12:11 WBC 9.2 D RBC 3.27 L Hgb 9.9 L Hct 28.5 L MCV 87.2 MCH 30 MCHC 34.7 RDW 13.8 Plt Count 120 L D MPV 11.1 Neut % (Auto) 83.2 H Lymph % (Auto) 7.8 L [place] % (Auto) 6.0 Eos % (Auto) 0.9 Baso % (Auto) 0.5 Neut # (Auto) 7.6 H Lymph # (Auto) 0.7 L [place] # (Auto) 0.6 Eos # (Auto) 0.1 Baso # (Auto) 0.1 Total Counted Immature Gran % 1.6 Nucleated RBC % 0.0 Immature Gran # 0.15 Segmented Neutrophils Band Neutrophils Lymphocytes Monocytes Myelocytes Nucleated RBCs # 0.00 Platelet Estimate Immature Plt Fraction 0.0 INR 1.1 PT Patient/Control Mix 11.6 Circ Anticoag PTT 26.4 Patient Temperature ABG pH ABG pH at Pt Temp ABG pCO2 ABG pCO2 at Pt Temp ABG pO2 ABG pO2 at Pt Temp ABG HCO3 ABG Total CO2 ABG O2 Saturation ABG Base Excess ABG Sodium VBG pH VBG pCO2 VBG pO2 VBG HCO3 VBG Total CO2 VBG O2 Saturation VBG Base Excess Hemoglobin Hematocrit Potassium 3.9 Glucose 316 H Ionized Calcium FiO2 Sodium 141 Chloride 106 Carbon Dioxide 27 Anion Gap 11.9 BUN 11 Creatinine 0.70 GFR Calculation 112 BUN/Creatinine Ratio 15.00 POC Glucose Calculated Osmolality 291.3 Calcium 8.4 L Venous Ioniz Calcium Magnesium 1.8 Total Bilirubin 0.60 Direct Bilirubin AST 24 ALT 21 Alkaline Phosphatase 80 Total Creatine Kinase CK-MB (CK-2) CK and CKMB Interp Troponin I Total Protein 5.5 L Albumin 2.9 L Globulin 2.6 Albumin/Globulin Ratio 1.1 Urine Color Urine Appearance Urine pH Ur Specific [place] Urine Protein Urine Glucose (UA) Urine Ketones Urine Blood Urine Nitrate Urine Bilirubin Urine Urobilinogen Urine Leukocytes Urine RBC Urine WBC Ur Squamous Epith Cells Urine Bacteria Urine Mucus Urine Yeast (Budding) Ur Culture Indicated? Blood Type Antibody Screen Crossmatch 01/22/17 01/22/17 01/22/17 12:11 13:57 15:04 WBC RBC Hgb Hct MCV MCH MCHC RDW Plt Count MPV Neut % (Auto) Lymph % (Auto) [place] % (Auto) Eos % (Auto) Baso % (Auto) Neut # (Auto) Lymph # (Auto) [place] # (Auto) Eos # (Auto) Baso # (Auto) Total Counted Immature Gran % Nucleated RBC % Immature Gran # Segmented Neutrophils Band Neutrophils Lymphocytes Monocytes Myelocytes Nucleated RBCs # Platelet Estimate Immature Plt Fraction INR PT Patient/Control Mix Circ Anticoag PTT Patient Temperature ABG pH 7.431 ABG pH at Pt Temp ABG pCO2 37.7 ABG pCO2 at Pt Temp ABG pO2 151.0 H ABG pO2 at Pt Temp ABG HCO3 25.2 ABG Total CO2 23.1 ABG O2 Saturation 99.8 ABG Base Excess 0.9 ABG Sodium VBG pH VBG pCO2 VBG pO2 VBG HCO3 VBG Total CO2 VBG O2 Saturation VBG Base Excess Hemoglobin 8.8 L Hematocrit 27.5 L Potassium 3.8 Glucose 296 H Ionized Calcium FiO2 Sodium Chloride Carbon Dioxide Anion Gap BUN Creatinine GFR Calculation BUN/Creatinine Ratio POC Glucose 320 H Calculated Osmolality Calcium Venous Ioniz Calcium Magnesium Total Bilirubin Direct Bilirubin AST ALT Alkaline Phosphatase Total Creatine Kinase 148 CK-MB (CK-2) 7.9 H CK and CKMB Interp 5.3 Troponin I 1.240 H Total Protein Albumin Globulin Albumin/Globulin Ratio Urine Color Urine Appearance Urine pH Ur Specific [place] Urine Protein Urine Glucose (UA) Urine Ketones Urine Blood Urine Nitrate Urine Bilirubin Urine Urobilinogen Urine Leukocytes Urine RBC Urine WBC Ur Squamous Epith Cells Urine Bacteria Urine Mucus Urine Yeast (Budding) Ur Culture Indicated? Blood Type Antibody Screen Crossmatch 01/22/17 01/22/17 01/22/17 16:03 17:19 18:26 WBC RBC Hgb Hct MCV MCH MCHC RDW Plt Count MPV Neut % (Auto) Lymph % (Auto) [place] % (Auto) Eos % (Auto) Baso % (Auto) Neut # (Auto) Lymph # (Auto) [place] # (Auto) Eos # (Auto) Baso # (Auto) Total Counted Immature Gran % Nucleated RBC % Immature Gran # Segmented Neutrophils Band Neutrophils Lymphocytes Monocytes Myelocytes Nucleated RBCs # Platelet Estimate Immature Plt Fraction INR PT Patient/Control Mix Circ Anticoag PTT Patient Temperature ABG pH 7.374 ABG pH at Pt Temp ABG pCO2 45.7 ABG pCO2 at Pt Temp ABG pO2 119.0 H ABG pO2 at Pt Temp ABG HCO3 25.4 ABG Total CO2 24.4 ABG O2 Saturation 98.7 ABG Base Excess 1.1 ABG Sodium VBG pH VBG pCO2 VBG pO2 VBG HCO3 VBG Total CO2 VBG O2 Saturation VBG Base Excess Hemoglobin 9.8 L Hematocrit 30.3 L Potassium 3.5 Glucose 227 H Ionized Calcium FiO2 Sodium Chloride Carbon Dioxide Anion Gap BUN Creatinine GFR Calculation BUN/Creatinine Ratio POC Glucose 230 H 167 H Calculated Osmolality Calcium Venous Ioniz Calcium Magnesium Total Bilirubin Direct Bilirubin AST ALT Alkaline Phosphatase Total Creatine Kinase CK-MB (CK-2) CK and CKMB Interp Troponin I Total Protein Albumin Globulin Albumin/Globulin Ratio Urine Color Urine Appearance Urine pH Ur Specific [place] Urine Protein Urine Glucose (UA) Urine Ketones Urine Blood Urine Nitrate Urine Bilirubin Urine Urobilinogen Urine Leukocytes Urine RBC Urine WBC Ur Squamous Epith Cells Urine Bacteria Urine Mucus Urine Yeast (Budding) Ur Culture Indicated? Blood Type Antibody Screen Crossmatch 01/22/17 01/22/17 01/22/17 18:52 19:34 20:21 WBC RBC Hgb Hct MCV MCH MCHC RDW Plt Count MPV Neut % (Auto) Lymph % (Auto) [place] % (Auto) Eos % (Auto) Baso % (Auto) Neut # (Auto) Lymph # (Auto) [place] # (Auto) Eos # (Auto) Baso # (Auto) Total Counted Immature Gran % Nucleated RBC % Immature Gran # Segmented Neutrophils Band Neutrophils Lymphocytes Monocytes Myelocytes Nucleated RBCs # Platelet Estimate Immature Plt Fraction INR PT Patient/Control Mix Circ Anticoag PTT Patient Temperature ABG pH 7.345 L ABG pH at Pt Temp ABG pCO2 50.6 H ABG pCO2 at Pt Temp ABG pO2 94.1 ABG pO2 at Pt Temp ABG HCO3 25.5 ABG Total CO2 25.2 ABG O2 Saturation 97.9 ABG Base Excess 1.2 ABG Sodium VBG pH VBG pCO2 VBG pO2 VBG HCO3 VBG Total CO2 VBG O2 Saturation VBG Base Excess Hemoglobin 10.0 L Hematocrit 31.0 L Potassium 4.2 Glucose 179 H Ionized Calcium FiO2 Sodium Chloride Carbon Dioxide Anion Gap BUN Creatinine GFR Calculation BUN/Creatinine Ratio POC Glucose 150 H Calculated Osmolality Calcium Venous Ioniz Calcium Magnesium Total Bilirubin Direct Bilirubin AST ALT Alkaline Phosphatase Total Creatine Kinase 178 D CK-MB (CK-2) 5.9 H CK and CKMB Interp 3.3 Troponin I 1.290 H Total Protein Albumin Globulin Albumin/Globulin Ratio Urine Color Urine Appearance Urine pH Ur Specific [place] Urine Protein Urine Glucose (UA) Urine Ketones Urine Blood Urine Nitrate Urine Bilirubin Urine Urobilinogen Urine Leukocytes Urine RBC Urine WBC Ur Squamous Epith Cells Urine Bacteria Urine Mucus Urine Yeast (Budding) Ur Culture Indicated? Blood Type Antibody Screen Crossmatch 01/22/17 01/22/17 01/22/17 21:19 22:05 23:02 WBC RBC Hgb Hct MCV MCH MCHC RDW Plt Count MPV Neut % (Auto) Lymph % (Auto) [place] % (Auto) Eos % (Auto) Baso % (Auto) Neut # (Auto) Lymph # (Auto) [place] # (Auto) Eos # (Auto) Baso # (Auto) Total Counted Immature Gran % Nucleated RBC % Immature Gran # Segmented Neutrophils Band Neutrophils Lymphocytes Monocytes Myelocytes Nucleated RBCs # Platelet Estimate Immature Plt Fraction INR PT Patient/Control Mix Circ Anticoag PTT Patient Temperature ABG pH ABG pH at Pt Temp ABG pCO2 ABG pCO2 at Pt Temp ABG pO2 ABG pO2 at Pt Temp ABG HCO3 ABG Total CO2 ABG O2 Saturation ABG Base Excess ABG Sodium VBG pH VBG pCO2 VBG pO2 VBG HCO3 VBG Total CO2 VBG O2 Saturation VBG Base Excess Hemoglobin Hematocrit Potassium Glucose Ionized Calcium FiO2 Sodium Chloride Carbon Dioxide Anion Gap BUN Creatinine GFR Calculation BUN/Creatinine Ratio POC Glucose 127 H 126 H 127 H Calculated Osmolality Calcium Venous Ioniz Calcium Magnesium Total Bilirubin Direct Bilirubin AST ALT Alkaline Phosphatase Total Creatine Kinase CK-MB (CK-2) CK and CKMB Interp Troponin I Total Protein Albumin Globulin Albumin/Globulin Ratio Urine Color Urine Appearance Urine pH Ur Specific [place] Urine Protein Urine Glucose (UA) Urine Ketones Urine Blood Urine Nitrate Urine Bilirubin Urine Urobilinogen Urine Leukocytes Urine RBC Urine WBC Ur Squamous Epith Cells Urine Bacteria Urine Mucus Urine Yeast (Budding) Ur Culture Indicated? Blood Type Antibody Screen Crossmatch 01/23/17 01/23/17 01/23/17 00:00 01:04 02:00 WBC RBC Hgb Hct MCV MCH MCHC RDW Plt Count MPV Neut % (Auto) Lymph % (Auto) [place] % (Auto) Eos % (Auto) Baso % (Auto) Neut # (Auto) Lymph # (Auto) [place] # (Auto) Eos # (Auto) Baso # (Auto) Total Counted Immature Gran % Nucleated RBC % Immature Gran # Segmented Neutrophils Band Neutrophils Lymphocytes Monocytes Myelocytes Nucleated RBCs # Platelet Estimate Immature Plt Fraction INR PT Patient/Control Mix Circ Anticoag PTT Patient Temperature ABG pH 7.358 ABG pH at Pt Temp ABG pCO2 47.7 ABG pCO2 at Pt Temp ABG pO2 102.0 H ABG pO2 at Pt Temp ABG HCO3 25.3 ABG Total CO2 24.6 ABG O2 Saturation 98.2 ABG Base Excess 0.9 ABG Sodium VBG pH VBG pCO2 VBG pO2 VBG HCO3 VBG Total CO2 VBG O2 Saturation VBG Base Excess Hemoglobin 9.7 L Hematocrit 30.0 L Potassium 3.8 Glucose 111 H Ionized Calcium FiO2 Sodium Chloride Carbon Dioxide Anion Gap BUN Creatinine GFR Calculation BUN/Creatinine Ratio POC Glucose 106 167 H Calculated Osmolality Calcium Venous Ioniz Calcium Magnesium Total Bilirubin Direct Bilirubin AST ALT Alkaline Phosphatase Total Creatine Kinase CK-MB (CK-2) CK and CKMB Interp Troponin I Total Protein Albumin Globulin Albumin/Globulin Ratio Urine Color Urine Appearance Urine pH Ur Specific [place] Urine Protein Urine Glucose (UA) Urine Ketones Urine Blood Urine Nitrate Urine Bilirubin Urine Urobilinogen Urine Leukocytes Urine RBC Urine WBC Ur Squamous Epith Cells Urine Bacteria Urine Mucus Urine Yeast (Budding) Ur Culture Indicated? Blood Type Antibody Screen Crossmatch 01/23/17 01/23/17 01/23/17 02:58 04:05 04:05 WBC 18.3 H D RBC 3.28 L Hgb 9.8 L Hct 29.4 L MCV 89.6 MCH 30 MCHC 33.3 RDW 14.3 Plt Count 174 D MPV 11.2 Neut % (Auto) 88.9 H Lymph % (Auto) 4.2 L [place] % (Auto) 5.5 Eos % (Auto) 0.0 Baso % (Auto) 0.3 Neut # (Auto) 16.3 H Lymph # (Auto) 0.8 L [place] # (Auto) 1.0 H Eos # (Auto) 0.0 Baso # (Auto) 0.1 Total Counted 100 Immature Gran % 1.1 Nucleated RBC % 0.0 Immature Gran # 0.21 Segmented Neutrophils 86 H Band Neutrophils 5 Lymphocytes 4 L Monocytes 1 L Myelocytes 4 Nucleated RBCs # 0.00 Platelet Estimate Normal Immature Plt Fraction 0.0 INR PT Patient/Control Mix Circ Anticoag PTT Patient Temperature ABG pH ABG pH at Pt Temp ABG pCO2 ABG pCO2 at Pt Temp ABG pO2 ABG pO2 at Pt Temp ABG HCO3 ABG Total CO2 ABG O2 Saturation ABG Base Excess ABG Sodium VBG pH VBG pCO2 VBG pO2 VBG HCO3 VBG Total CO2 VBG O2 Saturation VBG Base Excess Hemoglobin Hematocrit Potassium Glucose Ionized Calcium FiO2 Sodium Chloride Carbon Dioxide Anion Gap BUN Creatinine GFR Calculation BUN/Creatinine Ratio POC Glucose 135 H Calculated Osmolality Calcium Venous Ioniz Calcium Magnesium Total Bilirubin Direct Bilirubin AST ALT Alkaline Phosphatase Total Creatine Kinase 154 CK-MB (CK-2) 4.1 H CK and CKMB Interp Troponin I 1.010 H D Total Protein Albumin Globulin Albumin/Globulin Ratio Urine Color Urine Appearance Urine pH Ur Specific [place] Urine Protein Urine Glucose (UA) Urine Ketones Urine Blood Urine Nitrate Urine Bilirubin Urine Urobilinogen Urine Leukocytes Urine RBC Urine WBC Ur Squamous Epith Cells Urine Bacteria Urine Mucus Urine Yeast (Budding) Ur Culture Indicated? Blood Type Antibody Screen Crossmatch 01/23/17 01/23/17 01/23/17 04:05 04:05 05:06 WBC RBC Hgb Hct MCV MCH MCHC RDW Plt Count MPV Neut % (Auto) Lymph % (Auto) [place] % (Auto) Eos % (Auto) Baso % (Auto) Neut # (Auto) Lymph # (Auto) [place] # (Auto) Eos # (Auto) Baso # (Auto) Total Counted Immature Gran % Nucleated RBC % Immature Gran # Segmented Neutrophils Band Neutrophils Lymphocytes Monocytes Myelocytes Nucleated RBCs # Platelet Estimate Immature Plt Fraction INR PT Patient/Control Mix Circ Anticoag PTT Patient Temperature ABG pH 7.328 L ABG pH at Pt Temp ABG pCO2 51.2 H ABG pCO2 at Pt Temp ABG pO2 88.1 ABG pO2 at Pt Temp ABG HCO3 24.7 ABG Total CO2 24.6 ABG O2 Saturation 96.7 ABG Base Excess 0.3 ABG Sodium VBG pH VBG pCO2 VBG pO2 VBG HCO3 VBG Total CO2 VBG O2 Saturation VBG Base Excess Hemoglobin 10.0 L Hematocrit 30.8 L Potassium 4.2 4.1 Glucose 151 H 164 H Ionized Calcium FiO2 Sodium 141 Chloride 107 Carbon Dioxide 27 Anion Gap 11.2 BUN 15 Creatinine 0.60 GFR Calculation 117 BUN/Creatinine Ratio 25.00 H POC Glucose 151 H Calculated Osmolality 284.3 Calcium 8.1 L Venous Ioniz Calcium Magnesium 1.6 L Total Bilirubin 0.70 Direct Bilirubin 0.10 AST 19 ALT 19 Alkaline Phosphatase 59 Total Creatine Kinase CK-MB (CK-2) CK and CKMB Interp Troponin I Total Protein 6.0 L Albumin 3.4 Globulin 2.6 Albumin/Globulin Ratio 1.3 Urine Color Urine Appearance Urine pH Ur Specific [place] Urine Protein Urine Glucose (UA) Urine Ketones Urine Blood Urine Nitrate Urine Bilirubin Urine Urobilinogen Urine Leukocytes Urine RBC Urine WBC Ur Squamous Epith Cells Urine Bacteria Urine Mucus Urine Yeast (Budding) Ur Culture Indicated? Blood Type Antibody Screen Crossmatch 01/23/17 06:00 WBC RBC Hgb Hct MCV MCH MCHC RDW Plt Count MPV Neut % (Auto) Lymph % (Auto) [place] % (Auto) Eos % (Auto) Baso % (Auto) Neut # (Auto) Lymph # (Auto) [place] # (Auto) Eos # (Auto) Baso # (Auto) Total Counted Immature Gran % Nucleated RBC % Immature Gran # Segmented Neutrophils Band Neutrophils Lymphocytes Monocytes Myelocytes Nucleated RBCs # Platelet Estimate Immature Plt Fraction INR PT Patient/Control Mix Circ Anticoag PTT Patient Temperature ABG pH ABG pH at Pt Temp ABG pCO2 ABG pCO2 at Pt Temp ABG pO2 ABG pO2 at Pt Temp ABG HCO3 ABG Total CO2 ABG O2 Saturation ABG Base Excess ABG Sodium VBG pH VBG pCO2 VBG pO2 VBG HCO3 VBG Total CO2 VBG O2 Saturation VBG Base Excess Hemoglobin Hematocrit Potassium Glucose Ionized Calcium FiO2 Sodium Chloride Carbon Dioxide Anion Gap BUN Creatinine GFR Calculation BUN/Creatinine Ratio POC Glucose 152 H Calculated Osmolality Calcium Venous Ioniz Calcium Magnesium Total Bilirubin Direct Bilirubin AST ALT Alkaline Phosphatase Total Creatine Kinase CK-MB (CK-2) CK and CKMB Interp Troponin I Total Protein Albumin Globulin Albumin/Globulin Ratio Urine Color Urine Appearance Urine pH Ur Specific [place] Urine Protein Urine Glucose (UA) Urine Ketones Urine Blood Urine Nitrate Urine Bilirubin Urine Urobilinogen Urine Leukocytes Urine RBC Urine WBC Ur Squamous Epith Cells Urine Bacteria Urine Mucus Urine Yeast (Budding) Ur Culture Indicated? Blood Type Antibody Screen Crossmatch Quality Measures - VTE Contraindication to Pharmacological VTE Prophylaxis: High Risk of Bleeding
[2017-01-23] MEDS ORDERED: GLUCAGON 1 MG VIAL IM PRN (06:24)
[2017-01-23] MEDS ORDERED: DEXTROSE 50% 25 GM/50 ML SYRINGE IV PRN (06:24)
[2017-01-23] MEDS: CEFUROXIME INJ 1,500 MG in SODIUM CHLORIDE 0.9% 100 ML IV SCH ×2 (06:41→18:23)
--- NOTE | 2017-01-23 07:28 | EKG Report ---
Stationary ECG Study [facility] Test Date: 01/23/2017 7:28:51 AM Pat Name: YUNG RENE Department: Room: 104 Gender: F It Director: TYREE : [id number] Requested by: Bandar Carty Order Number: [id number] Reading MD: JOVI FOSTER Intervals [place] Rate: 68 P: 58 DE: 135 QRS: 61 QRSD: 86 T: 0 QT: 426 QTc: 443 Interpretive Statements SINUS RHYTHM LOW QRS VOLTAGE IN PRECORDIAL LEADS Electronically Signed On 01-23-17 13:08:47 CDT by JOVI FOSTER [email or web address]
--- NOTE | 2017-01-23 08:13 | XRay Report ---
Portable chest Date: 01/23/2017 Clinical history: Chest tubes Comparison: 01/22/2017 Technique: Portable AP sitting chest Findings: The heart is minimally enlarged with recent median sternotomy. Removal of the endotracheal tube and nasogastric tube. Retraction the [place] catheter which remains in the pulmonary outflow tract. Stable right IJ CVP line and minimal retraction of the right chest tube. No significant pneumothorax is identified with reduced atelectasis/edema at the lung bases. Impression: No definite pneumothorax with reduced atelectasis/edema in patient with recent median sternotomy. Supportive devices as above noted. PROCEDURE INTERPRETED AT [facility] Final Report Signed by: Dr. Fatimah Cleveland
[2017-01-23] MEDS: ASPIRIN CHEW 81 MG TABLET PO SCH (08:49)
[2017-01-23] MEDS: METOPROLOL TARTRATE 25 MG TABLET PO SCH (08:49)
[2017-01-23] MEDS: INSULIN REGULAR 100 UNIT/ML SUBCUT SCH ×6 (08:49→23:30)
[2017-01-23] MEDS: CHLORHEXIDINE 0.12% ORAL RINSE 60 ML BOTTLE SWISH/SPIT SCH ×3 (08:49→21:37)
[2017-01-23] MEDS: glipiZIDE 10 MG TABLET PO SCH ×2 (08:49→21:06)
[2017-01-23 09:45] LABS: Hematocrit 32.2 VOL% (35.7-47.0); Hemoglobin 10.7 GM/DL (12.0-16.0)
[2017-01-23] MEDS: SODIUM CHLORIDE 0.45% 1,000 ML IV SCH ×2 (11:49)
--- NOTE | 2017-01-23 11:58 | Sleep Medicine Progress Note ---
Assessment and Plan (1) Obstructive sleep apnea Status: Acute Assessment and plan: Continue auto titration CPAP through the weekend with reset of her own machine prior to discharge. Current Visit: Yes (2) Type 2 diabetes mellitus Status: Acute Current Visit: Yes (3) Obesity (BMI 30-39.9) Status: Acute Current Visit: Yes Sleep Medicine Subjective Interval history: Patient looks very good this morning. She was extubated yesterday and slept with CPAP last night and had good results. She rested comfortably. She reports no new issues or problems. We will continue CPAP auto titration through the weekend and obtain her best CPAP pressure from auto and reset her own machine prior to discharge. Exam (Progress Note) - Constitutional Vitals: Period Temp Pulse Resp BP Sys/Up Pulse Ox Last 24 Hr 97.4 F-98.9 F 67-89 10-20 83-141/7-76 95-100 Exam: Patient on mechanical ventilation. Sedated. Will arouse. Results - Labs CBC & BMP: 01/23/17 09:35 01/23/17 04:05 Lab Results: I have reviewed the past 24 hour labs Specialty Discharge - Follow Up or Referrals
[2017-01-23] MEDS ORDERED: DAPAGLIFLOZIN PO SCH (21:00)
[2017-01-23] MEDS ORDERED: [UNRECOGNIZED DRUG - OTHER] PO SCH (21:00)
[2017-01-23] MEDS ORDERED: METFORMIN HCL PO SCH (21:00)
[2017-01-23] MEDS: CHOLECALCIFEROL 1,000 UNIT TABLET PO SCH (21:06)
[2017-01-23] MEDS: CLORAZEPATE 7.5 MG TABLET PO SCH (21:06)
[2017-01-23] MEDS: CITALOPRAM 20 MG TABLET PO SCH (21:06)
[2017-01-23] MEDS: MORPHINE 2 MG/1 ML SYRINGE IV PRN (21:25)
[2017-01-24] MEDS: INSULIN REGULAR 100 UNIT/ML SUBCUT SCH ×4 (04:00→20:08)
[2017-01-24 05:58] LABS: Bilirubin,Direct 0.1 MG/DL (0.0-0.20); Bilirubin,Total 0.5 MG/DL (0.2-1.0); Magnesium 2.2 MG/DL (1.8-2.4); Osmolality,Calculated 284.3 MOS/KG (273-304); Total Protein 5.5 G/DL (6.4-8.3)
[2017-01-24 06:00] LABS: Basophils % 0.2 % (0.0-0.8); Eosinophils # 0.1 10*3/uL (0.0-0.87); Eosinophils % 1.1 % (0.00-10.9); Hematocrit 30.4 VOL% (35.7-47.0); Hemoglobin 10.3 GM/DL (12.0-16.0); Immature Granulocytes % 0.9 %; Immature Granulocytes Absolute 0.09 #; Lymphocytes # 1.4 10*3/uL (1.4-4.0); Lymphocytes % 13.4 % (21.3-54.2); Mean Corpuscular HGB Conc 33.9 GM/DL (32-36); Mean Corpuscular Hemoglobin 31 PG (27-34); Mean Platelet Volume 11.7 FL (9.6-12.0); Monocytes # 0.7 10*3/uL (0.11-0.8); Monocytes % 7.2 % (1.7-12.7); Neutrophils # 7.8 10*3/uL (1.4-7.4); Neutrophils % 77.2 % (38.7-73.9); Platelet Count 117 T/CUMM (130-400); Red Blood Count 3.34 MC/CUMM (3.8-5.5); Red Cell Distribution Width 14.7 % (9.3-17.3); White Blood Count 10.2 T/CUMM (4-12)
[2017-01-24] MEDS: PHENYLEPHRINE DRIP 40 MG/250 ML PREMIX IV PRN (06:15)
[2017-01-24] MEDS: ALBUMIN 5% 12.5 GM in PREMIX 1 EACH IV PRN ×2 (06:28→06:46)
[2017-01-24] MEDS: SODIUM CHLORIDE 0.45% 1,000 ML IV SCH (07:37)
--- NOTE | 2017-01-24 08:43 | Cardiothoracic Progress Note ---
Cardiothoracic Subjective Interval history: Patient is awake alert and extubated. She has generalized soreness but otherwise feels okay. Vital signs have been stable and she is breathing comfortably. Laboratory work this morning is essentially okay for postoperative day 2. She still does have a small air leak via the left anterior mediastinal chest tube in place and removed her pleural chest tube. Overall her progress appears satisfactory and I think she can be transferred to telemetry later today. Exam (Progress Note) - Constitutional Vitals: Period Temp Pulse Resp BP Sys/Up Pulse Ox Last 24 Hr 96.7 F-98.7 F 67-78 12-25 79-126/31-73 94-100 Result/EKG - Labs CBC & BMP: 01/24/17 05:15 01/24/17 05:15 Labs: Laboratory Results - last 24 hr 01/21/17 01/23/17 01/23/17 04:14 08:08 09:35 WBC RBC Hgb 10.7 L Hct 32.2 L MCV MCH MCHC RDW Plt Count MPV Neut % (Auto) Lymph % (Auto) [place] % (Auto) Eos % (Auto) Baso % (Auto) Neut # (Auto) Lymph # (Auto) [place] # (Auto) Eos # (Auto) Baso # (Auto) Immature Gran % Nucleated RBC % Immature Gran # Nucleated RBCs # Immature Plt Fraction Sodium Potassium Chloride Carbon Dioxide Anion Gap BUN Creatinine GFR Calculation BUN/Creatinine Ratio Glucose POC Glucose 175 H Calculated Osmolality Calcium Magnesium Total Bilirubin Direct Bilirubin AST ALT Alkaline Phosphatase Total Protein Albumin Globulin Albumin/Globulin Ratio Blood Type B POSITIVE Antibody Screen Negative Crossmatch See Detail 01/23/17 01/23/17 01/23/17 11:48 16:15 19:19 WBC RBC Hgb Hct MCV MCH MCHC RDW Plt Count MPV Neut % (Auto) Lymph % (Auto) [place] % (Auto) Eos % (Auto) Baso % (Auto) Neut # (Auto) Lymph # (Auto) [place] # (Auto) Eos # (Auto) Baso # (Auto) Immature Gran % Nucleated RBC % Immature Gran # Nucleated RBCs # Immature Plt Fraction Sodium Potassium Chloride Carbon Dioxide Anion Gap BUN Creatinine GFR Calculation BUN/Creatinine Ratio Glucose POC Glucose 192 H 232 H 381 H Calculated Osmolality Calcium Magnesium Total Bilirubin Direct Bilirubin AST ALT Alkaline Phosphatase Total Protein Albumin Globulin Albumin/Globulin Ratio Blood Type Antibody Screen Crossmatch 01/23/17 01/24/17 01/24/17 23:19 03:23 05:15 WBC 10.2 D RBC 3.34 L Hgb 10.3 L Hct 30.4 L MCV 91.0 MCH 31 MCHC 33.9 RDW 14.7 Plt Count 117 L D MPV 11.7 Neut % (Auto) 77.2 H Lymph % (Auto) 13.4 L [place] % (Auto) 7.2 Eos % (Auto) 1.1 Baso % (Auto) 0.2 Neut # (Auto) 7.8 H Lymph # (Auto) 1.4 [place] # (Auto) 0.7 Eos # (Auto) 0.1 Baso # (Auto) 0.0 Immature Gran % 0.9 Nucleated RBC % 0.0 Immature Gran # 0.09 Nucleated RBCs # 0.00 Immature Plt Fraction 0.0 Sodium Potassium Chloride Carbon Dioxide Anion Gap BUN Creatinine GFR Calculation BUN/Creatinine Ratio Glucose POC Glucose 291 H 183 H Calculated Osmolality Calcium Magnesium Total Bilirubin Direct Bilirubin AST ALT Alkaline Phosphatase Total Protein Albumin Globulin Albumin/Globulin Ratio Blood Type Antibody Screen Crossmatch 01/24/17 01/24/17 05:15 08:02 WBC RBC Hgb Hct MCV MCH MCHC RDW Plt Count MPV Neut % (Auto) Lymph % (Auto) [place] % (Auto) Eos % (Auto) Baso % (Auto) Neut # (Auto) Lymph # (Auto) [place] # (Auto) Eos # (Auto) Baso # (Auto) Immature Gran % Nucleated RBC % Immature Gran # Nucleated RBCs # Immature Plt Fraction Sodium 141 Potassium 4.0 Chloride 106 Carbon Dioxide 30 Anion Gap 9.0 BUN 22 H Creatinine 0.60 GFR Calculation 117 BUN/Creatinine Ratio 36.00 H Glucose 118 H POC Glucose 77 Calculated Osmolality 284.3 Calcium 8.0 L Magnesium 2.2 Total Bilirubin 0.50 Direct Bilirubin 0.10 AST 12 ALT 19 Alkaline Phosphatase 63 Total Protein 5.5 L Albumin 3.0 L Globulin 2.5 Albumin/Globulin Ratio 1.2 Blood Type Antibody Screen Crossmatch Quality Measures - VTE Contraindication to Pharmacological VTE Prophylaxis: High Risk of Bleeding Specialty Discharge - Follow Up or Referrals
[2017-01-24] MEDS ORDERED: ZALEPLON 5 MG CAPSULE PO PRN (09:25)
[2017-01-24] MEDS ORDERED: MAGNESIUM SULF RIDER 4 GM in PREMIX 1 EACH IV PRN (09:25)
[2017-01-24] MEDS ORDERED: DEXTROSE 50% 25 GM/50 ML SYRINGE IV PRN ×2 (09:25)
[2017-01-24] MEDS ORDERED: ALUMINUM/MAGNES/SIMETH MAX STR 30 ML UDCUP PO PRN (09:25)
[2017-01-24] MEDS ORDERED: MAGNESIUM SULF RIDER 2 GM in PREMIX 1 EACH IV PRN (09:25)
[2017-01-24] MEDS ORDERED: GLUCAGON 1 MG VIAL IM PRN ×2 (09:25)
[2017-01-24] MEDS ORDERED: SODIUM CHLOR 0.45% KCL 20 MEQ 20 MEQ/1,000 ML BAG IV SCH (09:25)
[2017-01-24] MEDS ORDERED: POTASSIUM CHLORIDE 20 MEQ TABLET PO PRN (09:25)
[2017-01-24] MEDS ORDERED: MAGNESIUM HYDROXIDE SUSP 30 ML UDCUP PO PRN (09:25)
--- NOTE | 2017-01-24 09:41 | XRay Report ---
XR chest 1V portable Indication: Chest tube removal. Chest one view: Comparison yesterday shows removal of one of the right-sided chest tubes. No pneumothorax seen. [place] catheter is been removed as well. Central line, right mediastinal drain, right basilar chest tube, median sternotomy wires, borderline cardiomegaly are stable. Impression: No pneumothorax after chest tube removal. [place] catheter removal. PROCEDURE INTERPRETED AT [facility] [place] DEPARTMENT OF RADIOLOGY Final Report Signed by: Rajan Velasquez M.D.
--- NOTE | 2017-01-24 10:21 | XRay Report ---
XR chest 1V portable Indication: Chest tube removal. Chest one view: Comparison earlier today shows removal of right basilar chest tube. No pneumothorax. The remainder of exam is unchanged. Impression: No pneumothorax after chest tube removal. PROCEDURE INTERPRETED AT [facility] DEPARTMENT OF RADIOLOGY Final Report Signed by: Rajan Velasquez M.D.
[2017-01-24] MEDS: ASPIRIN EC 325 MG TABLET PO SCH (10:38)
[2017-01-24] MEDS: PANTOPRAZOLE 40 MG TABLET PO SCH (10:38)
[2017-01-24] MEDS: KETOROLAC 30 MG/1 ML VIAL IV SCH ×3 (10:38→20:30)
[2017-01-24] MEDS: DOCUSATE SODIUM 100 MG CAPSULE PO SCH (10:38)
[2017-01-24] MEDS: FERROUS SULFATE 325 MG TABLET PO SCH (10:39)
[2017-01-24] MEDS: CHLORHEXIDINE 0.12% ORAL RINSE 60 ML BOTTLE SWISH/SPIT SCH ×3 (10:39→20:09)
[2017-01-24] MEDS: PHENYLEPHRINE DRIP 40 MG/250 ML PREMIX IV SCH (12:47)
[2017-01-24] MEDS: glipiZIDE 10 MG TABLET PO SCH (20:08)
[2017-01-24] MEDS: CITALOPRAM 20 MG TABLET PO SCH (20:08)
[2017-01-24] MEDS: CHOLECALCIFEROL 1,000 UNIT TABLET PO SCH (20:09)
[2017-01-24] MEDS: CLORAZEPATE 7.5 MG TABLET PO SCH (20:09)
[2017-01-25] MEDS: KETOROLAC 30 MG/1 ML VIAL IV SCH ×3 (03:52→17:21)
[2017-01-25 04:02] LABS: Basophils # 0.1 10*3/uL (0.0-0.2); Basophils % 0.4 % (0.0-0.8); Eosinophils # 0.5 10*3/uL (0.0-0.87); Eosinophils % 3.9 % (0.00-10.9); Hematocrit 32.3 VOL% (35.7-47.0); Hemoglobin 10.7 GM/DL (12.0-16.0); Immature Granulocytes Absolute 0.14 #; Lymphocytes # 1.7 10*3/uL (1.4-4.0); Lymphocytes % 12.2 % (21.3-54.2); Mean Corpuscular HGB Conc 33.1 GM/DL (32-36); Mean Corpuscular Hemoglobin 30 PG (27-34); Mean Corpuscular Volume 91.2 FL (87-102); Mean Platelet Volume 10.7 FL (9.6-12.0); Monocytes # 1.5 10*3/uL (0.11-0.8); Monocytes % 10.7 % (1.7-12.7); Neutrophils # 9.7 10*3/uL (1.4-7.4); Neutrophils % 71.8 % (38.7-73.9); Platelet Count 195 T/CUMM (130-400); Red Blood Count 3.54 MC/CUMM (3.8-5.5); Red Cell Distribution Width 15.1 % (9.3-17.3); White Blood Count 13.5 T/CUMM (4-12)
[2017-01-25 04:22] LABS: Alanine Aminotransferase 20 U/L (13-56); Albumin 3.2 G/DL (3.4-5.0); Alkaline Phosphatase 79 U/L (45-117); Aspartate Amino Transferase 14 U/L (0-37); Bilirubin,Indirect 0.6 MG/DL (0.0-1.0); Blood Urea Nitrogen 20 MG/DL (7-18); Calcium 7.8 MG/DL (8.5-10.1); Glucose 141 MG/DL (74-106); Magnesium 2.1 MG/DL (1.8-2.4); Osmolality,Calculated 281.5 MOS/KG (273-304); Potassium 4.1 MMOL/L (3.5-5.1); Sodium 139 MMOL/L (136-145); Total Protein 5.8 G/DL (6.4-8.3)
[2017-01-25 04:47] LABS: Troponin I Only 0.211 NG/ML (0.00-0.045)
[2017-01-25] MEDS ORDERED: FUROSEMIDE 40 MG/4 ML VIAL IV ONE (06:00)
--- NOTE | 2017-01-25 08:07 | Cardiothoracic Progress Note ---
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 She is awake alert and extubated and feeling fairly well. Her vital signs have been stable and she is breathing comfortably. She is being kept in intensive care primarily because she is requiring intermittent Ivan-Synephrine support of her blood pressure. Otherwise she has been fairly stable. She is breathing comfortably and her O2 sats are in the upper 90s. Laboratory work and x-ray all are acceptable for postoperative day 3. Urine output has been good and creatinine is normal. I think we will continue to watch her in intensive care at least 1 more day. Her chest tube no longer reveals an air leak but I think we will leave it in place for another 24 hours off suction. Exam (Progress Note) - Constitutional Vitals: Period Temp Pulse Resp BP Sys/Up Pulse Ox Last 24 Hr 98.5 F-100.5 F 78-93 12-21 73-124/40-97 16-100 Result/EKG - Labs CBC & BMP: 01/25/17 03:45 01/25/17 03:45 Labs: Laboratory Results - last 24 hr 01/21/17 01/24/17 01/24/17 04:14 11:39 16:05 WBC RBC Hgb Hct MCV MCH MCHC RDW Plt Count MPV Neut % (Auto) Lymph % (Auto) [place] % (Auto) Eos % (Auto) Baso % (Auto) Neut # (Auto) Lymph # (Auto) [place] # (Auto) Eos # (Auto) Baso # (Auto) Immature Gran % Nucleated RBC % Immature Gran # Nucleated RBCs # Immature Plt Fraction Sodium Potassium Chloride Carbon Dioxide Anion Gap BUN Creatinine GFR Calculation BUN/Creatinine Ratio Glucose POC Glucose 153 H 282 H Calculated Osmolality Calcium Magnesium Total Bilirubin Direct Bilirubin Indirect Bilirubin AST ALT Alkaline Phosphatase Total Creatine Kinase CK-MB (CK-2) Troponin I Total Protein Albumin Globulin Albumin/Globulin Ratio Crossmatch See Detail 01/24/17 01/25/17 01/25/17 19:36 03:45 03:45 WBC 13.5 H D RBC 3.54 L Hgb 10.7 L Hct 32.3 L MCV 91.2 MCH 30 MCHC 33.1 RDW 15.1 Plt Count 195 D MPV 10.7 Neut % (Auto) 71.8 Lymph % (Auto) 12.2 L [place] % (Auto) 10.7 Eos % (Auto) 3.9 Baso % (Auto) 0.4 Neut # (Auto) 9.7 H Lymph # (Auto) 1.7 [place] # (Auto) 1.5 H Eos # (Auto) 0.5 Baso # (Auto) 0.1 Immature Gran % 1.0 Nucleated RBC % 0.0 Immature Gran # 0.14 Nucleated RBCs # 0.00 Immature Plt Fraction 0.0 Sodium 139 Potassium 4.1 Chloride 105 Carbon Dioxide 29 Anion Gap 9.1 BUN 20 H Creatinine 0.50 L GFR Calculation 125 BUN/Creatinine Ratio 40.00 H Glucose 141 H POC Glucose 324 H Calculated Osmolality 281.5 Calcium 7.8 L Magnesium 2.1 Total Bilirubin 0.80 Direct Bilirubin 0.20 Indirect Bilirubin 0.6 AST 14 ALT 20 Alkaline Phosphatase 79 Total Creatine Kinase 58 D CK-MB (CK-2) < 1.0 Troponin I 0.211 H D Total Protein 5.8 L Albumin 3.2 L Globulin 2.6 Albumin/Globulin Ratio 1.2 Crossmatch Quality Measures - VTE Contraindication to Pharmacological VTE Prophylaxis: High Risk of Bleeding Specialty Discharge - Follow Up or Referrals
[2017-01-25] MEDS: ASPIRIN EC 325 MG TABLET PO SCH (08:30)
[2017-01-25] MEDS: PANTOPRAZOLE 40 MG TABLET PO SCH (08:30)
[2017-01-25] MEDS: CHLORHEXIDINE 0.12% ORAL RINSE 60 ML BOTTLE SWISH/SPIT SCH ×2 (08:31→20:25)
[2017-01-25] MEDS: INSULIN REGULAR 100 UNIT/ML SUBCUT SCH ×4 (08:42→20:24)
--- NOTE | 2017-01-25 09:06 | XRay Report ---
XR chest 1V portable Indication: Shortness of breath. Chest one view: Comparison yesterday shows increasing haziness to the lung bases, likely atelectasis. Mediastinal drains, central line, cardiomegaly and mediastinal sutures are stable. Impression: Worsening bibasilar atelectasis or pneumonia. PROCEDURE INTERPRETED AT [facility] DEPARTMENT OF RADIOLOGY Final Report Signed by: Rajan Velasquez M.D.
[2017-01-25] MEDS: FERROUS SULFATE 325 MG TABLET PO SCH (09:13)
[2017-01-25] MEDS: DOCUSATE SODIUM 100 MG CAPSULE PO SCH (09:13)
[2017-01-25] MEDS: PHENYLEPHRINE DRIP 40 MG/250 ML PREMIX IV SCH (12:11)
[2017-01-25] MEDS: ACETAMINOPHEN 325 MG TABLET PO PRN (17:20)
[2017-01-25] MEDS: glipiZIDE 10 MG TABLET PO SCH (20:24)
[2017-01-25] MEDS: CITALOPRAM 20 MG TABLET PO SCH (20:24)
[2017-01-25] MEDS: CLORAZEPATE 7.5 MG TABLET PO SCH (20:24)
[2017-01-25] MEDS: CHOLECALCIFEROL 1,000 UNIT TABLET PO SCH (20:24)
[2017-01-26 04:32] LABS: Basophils % 0.5 % (0.0-0.8); Eosinophils # 0.3 10*3/uL (0.0-0.87); Eosinophils % 3.8 % (0.00-10.9); Hematocrit 30.1 VOL% (35.7-47.0); Hemoglobin 9.7 GM/DL (12.0-16.0); Immature Granulocytes % 1.1 %; Immature Granulocytes Absolute 0.07 #; Lymphocytes # 1.2 10*3/uL (1.4-4.0); Lymphocytes % 18.2 % (21.3-54.2); Mean Corpuscular HGB Conc 32.2 GM/DL (32-36); Mean Corpuscular Hemoglobin 29 PG (27-34); Mean Corpuscular Volume 90.9 FL (87-102); Mean Platelet Volume 10.7 FL (9.6-12.0); Monocytes # 0.6 10*3/uL (0.11-0.8); Monocytes % 8.3 % (1.7-12.7); Neutrophils # 4.6 10*3/uL (1.4-7.4); Neutrophils % 68.1 % (38.7-73.9); Platelet Count 132 T/CUMM (130-400); Red Blood Count 3.31 MC/CUMM (3.8-5.5); Red Cell Distribution Width 14.5 % (9.3-17.3); White Blood Count 6.7 T/CUMM (4-12)
[2017-01-26 04:43] LABS: Alanine Aminotransferase 17 U/L (13-56); Albumin 2.6 G/DL (3.4-5.0); Alkaline Phosphatase 94 U/L (45-117); Aspartate Amino Transferase 13 U/L (0-37); Bilirubin,Indirect 0.4 MG/DL (0.0-1.0); Blood Urea Nitrogen 18 MG/DL (7-18); Calcium 7.7 MG/DL (8.5-10.1); Glucose 236 MG/DL (74-106); Magnesium 2.1 MG/DL (1.8-2.4); Osmolality,Calculated 286.5 MOS/KG (273-304); Potassium 4.2 MMOL/L (3.5-5.1); Sodium 139 MMOL/L (136-145); Total Protein 5.4 G/DL (6.4-8.3)
[2017-01-26 04:45] LABS: Troponin I Only 0.167 NG/ML (0.00-0.045)
--- NOTE | 2017-01-26 06:12 | Cardiothoracic Progress Note ---
Cardiothoracic Subjective Interval history: Patient looks and feels some better this morning. Her blood pressure is been more stable and her other vital signs are within normal limits. She is breathing comfortably. Laboratory work this morning is all acceptable and although she did have some low-grade fever yesterday her white count is 6000 this morning and her temperature is down. Her chest tube has been clamped overnight and her chest x-ray this morning shows that both lungs are fully expanded. Her remaining chest tube has been discontinued and I think she can be transferred to telemetry later this morning. Exam (Progress Note) - Constitutional Vitals: Period Temp Pulse Resp BP Sys/Up Pulse Ox Last 24 Hr 98.4 F-101.2 F 82-101 12-23 71-134/40-85 16-99 Result/EKG - Labs CBC & BMP: 01/26/17 03:45 01/26/17 04:10 Labs: Laboratory Results - last 24 hr 01/25/17 01/25/17 01/25/17 08:09 11:46 17:04 WBC RBC Hgb Hct MCV MCH MCHC RDW Plt Count MPV Neut % (Auto) Lymph % (Auto) [place] % (Auto) Eos % (Auto) Baso % (Auto) Neut # (Auto) Lymph # (Auto) [place] # (Auto) Eos # (Auto) Baso # (Auto) Immature Gran % Nucleated RBC % Immature Gran # Nucleated RBCs # Immature Plt Fraction Sodium Potassium Chloride Carbon Dioxide Anion Gap BUN Creatinine GFR Calculation BUN/Creatinine Ratio Glucose POC Glucose 112 H 169 H 177 H Calculated Osmolality Calcium Magnesium Total Bilirubin Direct Bilirubin Indirect Bilirubin AST ALT Alkaline Phosphatase Total Creatine Kinase CK-MB (CK-2) Troponin I Total Protein Albumin Globulin Albumin/Globulin Ratio 01/25/17 01/25/17 01/26/17 20:14 20:17 03:45 WBC 6.7 D RBC 3.31 L Hgb 9.7 L Hct 30.1 L MCV 90.9 MCH 29 MCHC 32.2 RDW 14.5 Plt Count 132 D MPV 10.7 Neut % (Auto) 68.1 Lymph % (Auto) 18.2 L [place] % (Auto) 8.3 Eos % (Auto) 3.8 Baso % (Auto) 0.5 Neut # (Auto) 4.6 Lymph # (Auto) 1.2 L [place] # (Auto) 0.6 Eos # (Auto) 0.3 Baso # (Auto) 0.0 Immature Gran % 1.1 Nucleated RBC % 0.0 Immature Gran # 0.07 Nucleated RBCs # 0.00 Immature Plt Fraction 0.0 Sodium Potassium Chloride Carbon Dioxide Anion Gap BUN Creatinine GFR Calculation BUN/Creatinine Ratio Glucose POC Glucose < 20 L* 348 H Calculated Osmolality Calcium Magnesium Total Bilirubin Direct Bilirubin Indirect Bilirubin AST ALT Alkaline Phosphatase Total Creatine Kinase CK-MB (CK-2) Troponin I Total Protein Albumin Globulin Albumin/Globulin Ratio 01/26/17 04:10 WBC RBC Hgb Hct MCV MCH MCHC RDW Plt Count MPV Neut % (Auto) Lymph % (Auto) [place] % (Auto) Eos % (Auto) Baso % (Auto) Neut # (Auto) Lymph # (Auto) [place] # (Auto) Eos # (Auto) Baso # (Auto) Immature Gran % Nucleated RBC % Immature Gran # Nucleated RBCs # Immature Plt Fraction Sodium 139 Potassium 4.2 Chloride 105 Carbon Dioxide 30 Anion Gap 8.2 BUN 18 Creatinine 0.50 L GFR Calculation 126 BUN/Creatinine Ratio 36.00 H Glucose 236 H POC Glucose Calculated Osmolality 286.5 Calcium 7.7 L Magnesium 2.1 Total Bilirubin 0.50 Direct Bilirubin 0.10 Indirect Bilirubin 0.4 AST 13 ALT 17 Alkaline Phosphatase 94 Total Creatine Kinase 40 D CK-MB (CK-2) < 1.0 Troponin I 0.167 H D Total Protein 5.4 L Albumin 2.6 L Globulin 2.8 Albumin/Globulin Ratio 0.9 L Quality Measures - VTE Contraindication to Pharmacological VTE Prophylaxis: High Risk of Bleeding Specialty Discharge - Follow Up or Referrals
[2017-01-26] MEDS: INSULIN REGULAR 100 UNIT/ML SUBCUT SCH ×4 (07:30→20:26)
[2017-01-26] MEDS: ONDANSETRON 4 MG/2 ML VIAL IV PRN ×3 (07:37→17:27)
--- NOTE | 2017-01-26 07:51 | XRay Report ---
Portable chest. Indication: Shortness of breath. Comparison: January 25, 2017. The heart is enlarged with left atrial prominence. Post median sternotomy. Right IJ line is in satisfactory position. Mediastinal chest tube is in satisfactory position. The pulmonary vasculature is normal. The right lung is now clear. Persistent atelectasis and small amount of pleural effusion at the left base, with interval improvement. No pneumothorax. Stable osseous structures. Impression: Cardiomegaly. Interval improvement. Persistent atelectasis and small amount of pleural effusion on the left. PROCEDURE INTERPRETED AT [facility] DEPARTMENT OF RADIOLOGY Final Report Signed by: Dr. Ankita Llanes
[2017-01-26] MEDS: ASPIRIN EC 325 MG TABLET PO SCH (09:20)
[2017-01-26] MEDS: PANTOPRAZOLE 40 MG TABLET PO SCH (09:20)
[2017-01-26] MEDS: FERROUS SULFATE 325 MG TABLET PO SCH (09:20)
[2017-01-26] MEDS: CHLORHEXIDINE 0.12% ORAL RINSE 60 ML BOTTLE SWISH/SPIT SCH ×2 (09:20→20:26)
[2017-01-26] MEDS: DOCUSATE SODIUM 100 MG CAPSULE PO SCH (09:20)
[2017-01-26] MEDS: ACETAMINOPHEN 325 MG TABLET PO PRN (10:05)
[2017-01-26] MEDS: PHENYLEPHRINE DRIP 40 MG/250 ML PREMIX IV SCH (12:00)
--- NOTE | 2017-01-26 15:50 | Sleep Medicine Progress Note ---
Assessment and Plan (1) Obstructive sleep apnea Status: Acute Assessment and plan: Continue present therapy. She appears to be doing well on it. Current Visit: Yes (2) Type 2 diabetes mellitus Status: Acute Current Visit: Yes (3) Obesity (BMI 30-39.9) Status: Acute Current Visit: Yes Sleep Medicine Subjective Interval history: Patient has done well postop bypass surgery. On auto titration CPAP, her average device pressure is approximately [place] and her average AHI is 1.3. She is averaging over 6 hours nightly with CPAP. These are good results and we will continue present treatment. Exam (Progress Note) - Constitutional Vitals: Period Temp Pulse Resp BP Sys/Up Pulse Ox Last 24 Hr 98.4 F-101.2 F 84-103 14-23 91-134/58-88 90-99 Exam: She is alert and responsive in no acute distress. Chest with symmetrical breath sounds. Sternal incision looks good. Abdomen soft nontender extremities without edema. Neurologically, she is grossly intact. She moves all extremities with good strength. Results - Labs CBC & BMP: 01/26/17 03:45 01/26/17 04:10 Lab Results: I have reviewed the past 24 hour labs Specialty Discharge - Follow Up or Referrals
[2017-01-26] MEDS: glipiZIDE 10 MG TABLET PO SCH (20:22)
[2017-01-26] MEDS: CHOLECALCIFEROL 1,000 UNIT TABLET PO SCH (20:23)
[2017-01-26] MEDS: CLORAZEPATE 7.5 MG TABLET PO SCH (20:23)
[2017-01-26] MEDS: CITALOPRAM 20 MG TABLET PO SCH (20:23)
[2017-01-26] MEDS: oxyCODONE/ACETAMINOPHEN 5-325 MG TABLET PO PRN (20:23)
[2017-01-27] MEDS: ASPIRIN EC 325 MG TABLET PO SCH (08:28)
[2017-01-27] MEDS: DOCUSATE SODIUM 100 MG CAPSULE PO SCH (08:28)
[2017-01-27] MEDS: PANTOPRAZOLE 40 MG TABLET PO SCH (08:28)
[2017-01-27] MEDS: INSULIN REGULAR 100 UNIT/ML SUBCUT SCH ×4 (08:29→20:59)
[2017-01-27] MEDS: FERROUS SULFATE 325 MG TABLET PO SCH (08:29)
[2017-01-27] MEDS: CHLORHEXIDINE 0.12% ORAL RINSE 60 ML BOTTLE SWISH/SPIT SCH ×2 (08:30→21:50)
--- NOTE | 2017-01-27 08:33 | Cardiothoracic Progress Note ---
Cardiothoracic Subjective Interval history: Patient looks and feels better. Vital signs have been stable and she is afebrile. She is breathing comfortably. We will try to increase her activity some today according to routine postoperative protocol but overall her progress appears satisfactory. Exam (Progress Note) - Constitutional Vitals: Period Temp Pulse Resp BP Sys/Up Pulse Ox Last 24 Hr 96.5 F-99.8 F 88-103 15-20 94-123/55-88 92-96 Result/EKG - Labs CBC & BMP: 01/26/17 03:45 01/26/17 04:10 Labs: Laboratory Results - last 24 hr 01/26/17 01/26/17 01/26/17 11:01 15:14 19:03 POC Glucose 167 H 156 H 169 H 01/27/17 07:56 POC Glucose 176 H Quality Measures - VTE Contraindication to Pharmacological VTE Prophylaxis: High Risk of Bleeding Specialty Discharge - Follow Up or Referrals
[2017-01-27] MEDS: PHENYLEPHRINE DRIP 40 MG/250 ML PREMIX IV SCH (12:48)
[2017-01-27] MEDS: ONDANSETRON 4 MG/2 ML VIAL IV PRN ×2 (13:55→21:00)
[2017-01-27] MEDS: oxyCODONE/ACETAMINOPHEN 5-325 MG TABLET PO PRN ×2 (15:08→20:59)
--- NOTE | 2017-01-27 17:55 | Sleep Medicine Progress Note ---
Assessment and Plan (1) Obstructive sleep apnea Status: Acute Assessment and plan: We will have sleep lab reset her CPAP at 10 cm in follow-up in sleep clinic after discharge. Thank you for this consult. Current Visit: Yes (2) Type 2 diabetes mellitus Status: Acute Current Visit: Yes (3) Obesity (BMI 30-39.9) Status: Acute Current Visit: Yes Sleep Medicine Subjective Interval history: Patient feels better today and is doing well on auto titration CPAP. She seems to have good control with CPAP and her best pressure seems to be around 10 cm. Last night, she slept with it 7 hours and 40 minutes. She did have some leak with her mask. Exam (Progress Note) - Constitutional Vitals: Period Temp Pulse Resp BP Sys/Up Pulse Ox Last 24 Hr 96.5 F-98.6 F 88-102 16-20 94-120/55-77 92-97 Exam: She is alert and responsive in no acute distress. Chest with symmetrical breath sounds. Sternal incision looks good. Abdomen soft nontender extremities without edema. Neurologically, she is grossly intact. She moves all extremities with good strength. Results - Labs CBC & BMP: 01/26/17 03:45 01/26/17 04:10 Lab Results: I have reviewed the past 24 hour labs Specialty Discharge - Follow Up or Referrals
[2017-01-27] MEDS: glipiZIDE 10 MG TABLET PO SCH (20:59)
[2017-01-27] MEDS: CITALOPRAM 20 MG TABLET PO SCH (20:59)
[2017-01-27] MEDS: CHOLECALCIFEROL 1,000 UNIT TABLET PO SCH (20:59)
[2017-01-27] MEDS: CLORAZEPATE 7.5 MG TABLET PO SCH (20:59)
[2017-01-28 04:54] LABS: Basophils # 0.1 10*3/uL (0.0-0.2); Basophils % 0.6 % (0.0-0.8); Eosinophils # 0.5 10*3/uL (0.0-0.87); Eosinophils % 4.7 % (0.00-10.9); Hematocrit 30.9 VOL% (35.7-47.0); Hemoglobin 10.1 GM/DL (12.0-16.0); Immature Granulocytes % 2.2 %; Immature Granulocytes Absolute 0.23 #; Lymphocytes # 1.7 10*3/uL (1.4-4.0); Mean Corpuscular HGB Conc 32.7 GM/DL (32-36); Mean Corpuscular Hemoglobin 30 PG (27-34); Mean Corpuscular Volume 91.2 FL (87-102); Mean Platelet Volume 11.3 FL (9.6-12.0); Monocytes # 1.2 10*3/uL (0.11-0.8); Monocytes % 11.3 % (1.7-12.7); Neutrophils % 65.2 % (38.7-73.9); Platelet Count 206 T/CUMM (130-400); Red Blood Count 3.39 MC/CUMM (3.8-5.5); Red Cell Distribution Width 14.3 % (9.3-17.3); White Blood Count 10.7 T/CUMM (4-12)
[2017-01-28 05:19] LABS: Eosinophils 4 % (0-10); Hypochromasia 1+; Lymphocytes 19 % (20-55); Metamyelocytes 1 %; Myelocytes 1 %; Segmented Neutrophils 62 % (50-85); Total Cells Counted 100
[2017-01-28 05:20] LABS: Microcytosis Slight; Platelet Estimate Normal
[2017-01-28 05:28] LABS: Albumin 2.6 G/DL (3.4-5.0); Bilirubin,Direct 0.22 MG/DL (0.0-0.20); Bilirubin,Indirect 0.8 MG/DL (0.0-1.0); CKMB % 9.1 %; Calcium 8.2 MG/DL (8.5-10.1); Magnesium 2.1 MG/DL (1.8-2.4); Osmolality,Calculated 275.7 MOS/KG (273-304); Potassium 4.2 MMOL/L (3.5-5.1)
[2017-01-28 05:33] LABS: Troponin I Only 8.02 NG/ML (0.00-0.045)
--- NOTE | 2017-01-28 06:22 | Cardiothoracic Progress Note ---
Cardiothoracic Subjective Interval history: Patient looks and feels some better. She had a fairly comfortable night. Vital signs have been stable and she is breathing comfortably. The only unusual finding in her laboratory work is her troponin is 8 this morning whereas her immediate postoperative troponins were all 1-2. It is possible that this represents occlusion of a circumflex marginal coronary artery which was diseased but which was deemed not bypassable at the time of surgery. We will repeat her chemistries in the morning but otherwise we will continue observation and present postoperative care. Exam (Progress Note) - Constitutional Vitals: Period Temp Pulse Resp BP Sys/Up Pulse Ox Last 24 Hr 97.3 F-97.9 F 86-94 16-20 95-132/50-78 88-97 Result/EKG - Labs CBC & BMP: 01/28/17 03:53 01/28/17 03:53 Labs: Laboratory Results - last 24 hr 01/27/17 01/27/17 01/27/17 07:56 12:03 15:18 WBC RBC Hgb Hct MCV MCH MCHC RDW Plt Count MPV Neut % (Auto) Lymph % (Auto) [place] % (Auto) Eos % (Auto) Baso % (Auto) Neut # (Auto) Lymph # (Auto) [place] # (Auto) Eos # (Auto) Baso # (Auto) Total Counted Immature Gran % Nucleated RBC % Immature Gran # Segmented Neutrophils Lymphocytes Monocytes Eosinophils Metamyelocytes Myelocytes Nucleated RBCs # Platelet Estimate Immature Plt Fraction Hypochromasia Microcytosis Sodium Potassium Chloride Carbon Dioxide Anion Gap BUN Creatinine GFR Calculation BUN/Creatinine Ratio Glucose POC Glucose 176 H 211 H 206 H Calculated Osmolality Calcium Magnesium Total Bilirubin Direct Bilirubin Indirect Bilirubin AST ALT Alkaline Phosphatase Total Creatine Kinase CK-MB (CK-2) CK and CKMB Interp Troponin I Total Protein Albumin Globulin Albumin/Globulin Ratio 01/27/17 01/28/17 01/28/17 19:14 03:53 03:53 WBC 10.7 D RBC 3.39 L Hgb 10.1 L Hct 30.9 L MCV 91.2 MCH 30 MCHC 32.7 RDW 14.3 Plt Count 206 D MPV 11.3 Neut % (Auto) 65.2 Lymph % (Auto) 16.0 L [place] % (Auto) 11.3 Eos % (Auto) 4.7 Baso % (Auto) 0.6 Neut # (Auto) 7.0 Lymph # (Auto) 1.7 [place] # (Auto) 1.2 H Eos # (Auto) 0.5 Baso # (Auto) 0.1 Total Counted 100 Immature Gran % 2.2 Nucleated RBC % 0.0 Immature Gran # 0.23 Segmented Neutrophils 62 Lymphocytes 19 L Monocytes 13 Eosinophils 4 Metamyelocytes 1 Myelocytes 1 Nucleated RBCs # 0.00 Platelet Estimate Normal Immature Plt Fraction 0.0 Hypochromasia 1+ Microcytosis Slight Sodium 138 Potassium 4.2 Chloride 101 Carbon Dioxide 29 Anion Gap 12.2 BUN 18 Creatinine 0.70 GFR Calculation 113 BUN/Creatinine Ratio 25.00 H Glucose 85 POC Glucose 230 H Calculated Osmolality 275.7 Calcium 8.2 L Magnesium 2.1 Total Bilirubin 1.00 Direct Bilirubin 0.220 H Indirect Bilirubin 0.8 AST 57 H ALT 21 Alkaline Phosphatase 87 Total Creatine Kinase 294 H D CK-MB (CK-2) 26.8 H D CK and CKMB Interp 9.1 Troponin I 8.020 H D Total Protein 6.0 L Albumin 2.6 L Globulin 3.4 Albumin/Globulin Ratio 0.7 L Quality Measures - VTE Contraindication to Pharmacological VTE Prophylaxis: High Risk of Bleeding Specialty Discharge - Follow Up or Referrals
--- NOTE | 2017-01-28 07:31 | XRay Report ---
2 view chest. Indication: Shortness of breath. Comparison: January 26, 2017. The heart is enlarged. There is left atrial enlargement. Post median sternotomy. Distal tip of the right IJ line is in the right atrium. The pulmonary vasculature is normal. There is bilateral basilar atelectasis and pleural effusion which is worse on the left, but has worsened in the interval on the right as well. Osseous structures are stable. Impression: Slight interval worsening in the appearance of the right lung base, with increasing atelectasis. PROCEDURE INTERPRETED AT [facility] DEPARTMENT OF RADIOLOGY Final Report Signed by: Dr. Ankita Llanes
[2017-01-28] MEDS: INSULIN REGULAR 100 UNIT/ML SUBCUT SCH ×4 (08:47→21:13)
[2017-01-28] MEDS: DOCUSATE SODIUM 100 MG CAPSULE PO SCH (08:59)
[2017-01-28] MEDS: FERROUS SULFATE 325 MG TABLET PO SCH (08:59)
[2017-01-28] MEDS: PANTOPRAZOLE 40 MG TABLET PO SCH (08:59)
[2017-01-28] MEDS: ASPIRIN EC 325 MG TABLET PO SCH (08:59)
[2017-01-28] MEDS: CHLORHEXIDINE 0.12% ORAL RINSE 60 ML BOTTLE SWISH/SPIT SCH ×2 (09:01→21:11)
[2017-01-28] MEDS: ONDANSETRON 4 MG/2 ML VIAL IV PRN (09:33)
[2017-01-28] MEDS ORDERED: METOCLOPRAMIDE 10 MG/2 ML VIAL IV PRN (11:51)
[2017-01-28] MEDS ORDERED: PROMETHAZINE INJ 12.5 MG in SODIUM CHLORIDE 0.9% 50 ML IV PRN (11:51)
[2017-01-28 15:35] LABS: CKMB % 8.2 %
[2017-01-28 15:38] LABS: Troponin I Only 5.42 NG/ML (0.00-0.045)
[2017-01-28] MEDS: CLORAZEPATE 7.5 MG TABLET PO SCH (21:11)
[2017-01-28] MEDS: CHOLECALCIFEROL 1,000 UNIT TABLET PO SCH (21:11)
[2017-01-28] MEDS: glipiZIDE 10 MG TABLET PO SCH (21:11)
[2017-01-28] MEDS: CITALOPRAM 20 MG TABLET PO SCH (21:11)
--- NOTE | 2017-01-29 06:15 | Cardiothoracic Progress Note ---
Cardiothoracic Subjective Interval history: Patient looks and feels much better today. She had a comfortable night and vital signs have been stable. She is breathing comfortably. We will gradually try to increase her activities today according to routine postoperative protocol but overall her progress appears satisfactory. Her troponins which were 8 yesterday morning came down to 5 yesterday afternoon and they will be checked again this morning. Exam (Progress Note) - Constitutional Vitals: Period Temp Pulse Resp BP Sys/Up Pulse Ox Last 24 Hr 96.2 F-98.8 F 87-98 16-18 99-120/45-93 90-96 Result/EKG - Labs CBC & BMP: 01/28/17 03:53 01/28/17 03:53 Labs: Laboratory Results - last 24 hr 01/28/17 01/28/17 01/28/17 07:38 11:27 14:49 POC Glucose 124 H 187 H Total Creatine Kinase 207 H D CK-MB (CK-2) 17.0 H D CK and CKMB Interp 8.2 Troponin I 5.420 H D 01/28/17 01/28/17 15:17 18:59 POC Glucose 194 H 177 H Total Creatine Kinase CK-MB (CK-2) CK and CKMB Interp Troponin I Quality Measures - VTE Contraindication to Pharmacological VTE Prophylaxis: High Risk of Bleeding Specialty Discharge - Follow Up or Referrals
[2017-01-29 07:16] LABS: Basophils # 0.1 10*3/uL (0.0-0.2); Basophils % 0.5 % (0.0-0.8); Eosinophils # 0.4 10*3/uL (0.0-0.87); Eosinophils % 4.3 % (0.00-10.9); Hemoglobin 9.5 GM/DL (12.0-16.0); Immature Granulocytes % 2.3 %; Immature Granulocytes Absolute 0.21 #; Lymphocytes # 1.5 10*3/uL (1.4-4.0); Lymphocytes % 15.6 % (21.3-54.2); Mean Corpuscular HGB Conc 32.8 GM/DL (32-36); Mean Corpuscular Hemoglobin 30 PG (27-34); Mean Corpuscular Volume 90.3 FL (87-102); Mean Platelet Volume 10.5 FL (9.6-12.0); Monocytes # 0.9 10*3/uL (0.11-0.8); Monocytes % 9.7 % (1.7-12.7); Neutrophils # 6.3 10*3/uL (1.4-7.4); Neutrophils % 67.6 % (38.7-73.9); Platelet Count 245 T/CUMM (130-400); Red Blood Count 3.21 MC/CUMM (3.8-5.5); Red Cell Distribution Width 14.4 % (9.3-17.3); White Blood Count 9.3 T/CUMM (4-12)
--- NOTE | 2017-01-29 07:44 | XRay Report ---
Chest, 2 views History short of breath Comparison 01/28/2017 The heart is enlarged Moderate left greater than right pleural effusions again seen which may be slightly larger than on the prior study. There is slight increase in interstitial edema without more focal consolidation. Minimal atelectasis in the left base present. Impression: Slight increase in interstitial edema and bilateral pleural effusions PROCEDURE INTERPRETED AT [facility] DEPARTMENT OF RADIOLOGY Final Report Signed by: Dr. Meena Llanes
[2017-01-29 07:57] LABS: Albumin 2.3 G/DL (3.4-5.0); Bilirubin,Direct 0.3 MG/DL (0.0-0.20); Bilirubin,Indirect 0.4 MG/DL (0.0-1.0); Bilirubin,Total 0.7 MG/DL (0.2-1.0); CKMB % 6.1 %; Calcium 8.5 MG/DL (8.5-10.1); Magnesium 1.9 MG/DL (1.8-2.4); Osmolality,Calculated 273.7 MOS/KG (273-304); Total Protein 5.9 G/DL (6.4-8.3)
[2017-01-29 08:08] LABS: Troponin I Only 6.08 NG/ML (0.00-0.045)
--- NOTE | 2017-01-29 08:14 | EKG Report ---
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
[2017-01-29] MEDS: INSULIN REGULAR 100 UNIT/ML SUBCUT SCH ×4 (08:36→22:03)
[2017-01-29] MEDS: CHLORHEXIDINE 0.12% ORAL RINSE 60 ML BOTTLE SWISH/SPIT SCH ×2 (09:05→22:03)
[2017-01-29] MEDS: DOCUSATE SODIUM 100 MG CAPSULE PO SCH (09:05)
[2017-01-29] MEDS: FERROUS SULFATE 325 MG TABLET PO SCH (09:05)
[2017-01-29] MEDS: ASPIRIN EC 325 MG TABLET PO SCH (09:05)
[2017-01-29] MEDS: PANTOPRAZOLE 40 MG TABLET PO SCH (09:05)
[2017-01-29] MEDS: glipiZIDE 10 MG TABLET PO SCH (22:03)
[2017-01-29] MEDS: CITALOPRAM 20 MG TABLET PO SCH (22:03)
[2017-01-29] MEDS: CLORAZEPATE 7.5 MG TABLET PO SCH (22:03)
[2017-01-29] MEDS: CHOLECALCIFEROL 1,000 UNIT TABLET PO SCH (22:03)
--- NOTE | 2017-01-30 06:18 | Cardiothoracic Progress Note ---
Cardiothoracic Subjective Interval history: Patient had a comfortable night. Vital signs have been stable and she is breathing comfortably. We will continue to gradually increase her activity according to routine postoperative protocol but hopefully she will be ready for discharge this weekend. Exam (Progress Note) - Constitutional Vitals: Period Temp Pulse Resp BP Sys/Up Pulse Ox Last 24 Hr 97.0 F-98.3 F 73-104 16-20 99-151/52-77 92-96 Result/EKG - Labs CBC & BMP: 01/29/17 07:10 01/29/17 07:10 Labs: Laboratory Results - last 24 hr 01/29/17 01/29/17 01/29/17 07:10 07:10 08:05 WBC 9.3 RBC 3.21 L Hgb 9.5 L Hct 29.0 L MCV 90.3 MCH 30 MCHC 32.8 RDW 14.4 Plt Count 245 MPV 10.5 Neut % (Auto) 67.6 Lymph % (Auto) 15.6 L [place] % (Auto) 9.7 Eos % (Auto) 4.3 Baso % (Auto) 0.5 Neut # (Auto) 6.3 Lymph # (Auto) 1.5 [place] # (Auto) 0.9 H Eos # (Auto) 0.4 Baso # (Auto) 0.1 Immature Gran % 2.3 Nucleated RBC % 0.0 Immature Gran # 0.21 Nucleated RBCs # 0.00 Immature Plt Fraction 0.0 Sodium 138 Potassium 4.0 Chloride 100 Carbon Dioxide 29 Anion Gap 13.0 BUN 16 Creatinine 0.60 GFR Calculation 119 BUN/Creatinine Ratio 26.00 H Glucose 67 L POC Glucose 86 Calculated Osmolality 273.7 Calcium 8.5 Magnesium 1.9 Total Bilirubin 0.70 Direct Bilirubin 0.300 H Indirect Bilirubin 0.4 AST 36 ALT 17 Alkaline Phosphatase 83 Total Creatine Kinase 142 D CK-MB (CK-2) 8.6 H D CK and CKMB Interp 6.1 Troponin I 6.080 H Total Protein 5.9 L Albumin 2.3 L Globulin 3.6 H Albumin/Globulin Ratio 0.6 L 01/29/17 01/29/17 01/29/17 12:05 15:27 19:14 WBC RBC Hgb Hct MCV MCH MCHC RDW Plt Count MPV Neut % (Auto) Lymph % (Auto) [place] % (Auto) Eos % (Auto) Baso % (Auto) Neut # (Auto) Lymph # (Auto) [place] # (Auto) Eos # (Auto) Baso # (Auto) Immature Gran % Nucleated RBC % Immature Gran # Nucleated RBCs # Immature Plt Fraction Sodium Potassium Chloride Carbon Dioxide Anion Gap BUN Creatinine GFR Calculation BUN/Creatinine Ratio Glucose POC Glucose 194 H 214 H 249 H Calculated Osmolality Calcium Magnesium Total Bilirubin Direct Bilirubin Indirect Bilirubin AST ALT Alkaline Phosphatase Total Creatine Kinase CK-MB (CK-2) CK and CKMB Interp Troponin I Total Protein Albumin Globulin Albumin/Globulin Ratio Quality Measures - VTE Contraindication to Pharmacological VTE Prophylaxis: High Risk of Bleeding Specialty Discharge - Follow Up or Referrals
[2017-01-30] MEDS: INSULIN REGULAR 100 UNIT/ML SUBCUT SCH ×4 (08:10→20:50)
[2017-01-30] MEDS: FERROUS SULFATE 325 MG TABLET PO SCH (08:14)
[2017-01-30] MEDS: ASPIRIN EC 325 MG TABLET PO SCH (08:14)
[2017-01-30] MEDS: DOCUSATE SODIUM 100 MG CAPSULE PO SCH (08:15)
[2017-01-30] MEDS: PANTOPRAZOLE 40 MG TABLET PO SCH (08:15)
[2017-01-30] MEDS: CHLORHEXIDINE 0.12% ORAL RINSE 60 ML BOTTLE SWISH/SPIT SCH ×2 (10:50→20:50)
[2017-01-30] MEDS: glipiZIDE 10 MG TABLET PO SCH (20:50)
[2017-01-30] MEDS: CLORAZEPATE 7.5 MG TABLET PO SCH (20:50)
[2017-01-30] MEDS: CITALOPRAM 20 MG TABLET PO SCH (20:50)
[2017-01-30] MEDS: CHOLECALCIFEROL 1,000 UNIT TABLET PO SCH (20:50)
--- NOTE | 2017-01-31 08:58 | Discharge Summary ---
Hospital Course - Hospital Course Hospital Course: History of present illness: Patient is 51-year-old lady who was admitted to [facility] with symptoms of substernal discomfort associated with exertion of recent onset. This should become progressively severe and she was admitted for cardiac evaluation. This included cardiac catheterization which demonstrated critical coronary disease and the patient was advised to have bypass surgery. She was transferred to this hospital for that purpose. Past medical history is significant for history of hypertension and diabetes mellitus. There also is a family history of premature coronary disease. Past medical history review of systems social history and family history are documented in her previous note. Hospital course: Patient was taken to surgery and underwent two-vessel bypass grafting using bilateral internal mammary graft. Her postoperative course was essentially uncomplicated and she was discharged home on the ninth postoperative day. She was given instructions to return for follow-up in 1 month and her discharge medications are listed below. Specialty Discharge - Follow Up or Referrals Follow up with: Bandar March MD [Physician] - 1 Month Discharge Plan - Discharge Data Condition at Discharge: Stable Discharge Diet: advance to your usual diet Activity: resume usual activities as tolerated Hygiene: no restrictions Weight Bearing at Discharge: full weight bearing Driving: no restrictions - Discharge Medications Continue Cholecalciferol [Vitamin D3] 1,000 unit PO BEDTIME Dapagliflozin/Metformin HCl [Xigduo Xr 5 mg-1,000 mg Tablet] 1 tablet PO BEDTIME Clorazepate Dipotassium 7.5 mg PO BEDTIME Citalopram Hydrobromide [Celexa] 20 mg PO BEDTIME glipiZIDE [Glipizide] 10 mg PO BEDTIME - Follow Up or Referral Follow Up: Bandar March MD [Physician] - - Forms/Instructions Instructions: Heart Healthy Diet (GEN), Coronary Artery Bypass Graft, Construction Producer (GEN), Sternal Precautions (GEN) Exam - Constitutional Vitals: Period Temp Pulse Resp BP Sys/Up Pulse Ox Last 24 Hr 97.2 F-98.7 F 89-104 18-20 92-139/57-92 93-95 Discharge Results Procedures and tests throughout hospitalization: Pending Orders 01/21/17 04:14 Fresh Frozen Plasma IN AM Red Blood Cells Leuko Red IN AM Single Donor Platelets IN AM Type and Screen IN AM Labs on day of discharge: Labs from last 24 hours 01/31/17 01/30/17 01/30/17 07:05 18:57 14:59 POC Glucose 126 H 129 H 129 H 01/30/17 11:47 POC Glucose 218 H DS: Provider Date of admission: 01/20/17 10:23 Primary care physician: . 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
[2017-01-31] MEDS: ASPIRIN EC 325 MG TABLET PO SCH (09:24)
[2017-01-31] MEDS: FERROUS SULFATE 325 MG TABLET PO SCH (09:24)
[2017-01-31] MEDS: DOCUSATE SODIUM 100 MG CAPSULE PO SCH ×2 (09:24→09:25)
[2017-01-31] MEDS: PANTOPRAZOLE 40 MG TABLET PO SCH (09:24)
[2017-01-31] MEDS: CHLORHEXIDINE 0.12% ORAL RINSE 60 ML BOTTLE SWISH/SPIT SCH (09:25)
[2017-01-31] MEDS: INSULIN REGULAR 100 UNIT/ML SUBCUT SCH ×2 (09:25→11:54)
[2017-01-31 13:21] VITALS: BP 100/52
== END 2017-01-31 14:01 | disposition home or self-care (01) | DRG 236 ==
LOC: N.TELES 10:23 → N.CVR 01-22 11:12 → N.ICU 01-23 15:53 → N.TELES 01-26 14:33